=== PATIENT | male | born 1970 | race Caucasian/White ===

== ENCOUNTER → 2017-09-05 | Outpatient (CLI) | payer OTHER, BC, MEDICAID ==
--- NOTE | 2017-09-05 16:02 | Diagnostic Imaging Report ---
PROCEDURE: CT head without contrast. TECHNIQUE: Multiple contiguous axial images were obtained through the brain without the use of intravenous contrast. INDICATION: Head injury with bump in the right posterior region. Patient also complains of severe headache. COMPARISON: No prior studies are available for comparison. FINDINGS: The ventricles and sulci are within normal limits. There is an area of encephalomalacia in the right frontal lobe consistent with prior infarct or trauma. No sulcal effacement is seen. No midline shift is identified. No acute intra-axial or extra-axial hemorrhage is identified. The cisterns are patent. The visualized paranasal sinuses are clear. IMPRESSION: Chronic changes. No acute intracranial process is detected. Dictated by: Dictated on workstation # [id number]
== END ==
LOC: RAD 15:43
PROVIDERS: ATTEND Nurse Practitioner
DX: S09.90XA Unspecified injury of head, initial encounter (principal); G93.89 Other specified disorders of brain
CPT/HCPCS: 70450

== ENCOUNTER 2017-09-06 12:54 | Emergency (ER) | payer OTHER, BC, MEDICAID ==
[~2017-09-06] VITALS: Ht 170.2 cm; Wt 115.7 kg
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
[2017-09-06 13:37] LABS: BASOPHILS % (AUTO) 0 % (0-10); EOSINOPHILS # (AUTO) 0.1 10^3/uL (0.0-0.3); EOSINOPHILS % (AUTO) 1 % (0-10); HEMATOCRIT 43 % (40-54); HEMOGLOBIN 15.3 G/DL (13.3-17.7); LYMPHOCYTES # (AUTO) 3.9 X 10^3 (1.0-4.0); LYMPHOCYTES % (AUTO) 42 % (12-44); MEAN CORPUSCULAR HEMOGLOBIN 32 PG (25-34); MEAN CORPUSCULAR HGB CONC 35 G/DL (32-36); MEAN CORPUSCULAR VOLUME 91 FL (80-99); MEAN PLATELET VOLUME 10.4 FL (7.4-10.4); MONOCYTES % (AUTO) 11 % (0-12); NEUTROPHILS # (AUTO) 4.2 X 10^3 (1.8-7.8); NEUTROPHILS % (AUTO) 45 % (42-75); PLATELET COUNT 188 10^3/uL (130-400); RED BLOOD COUNT 4.79 10^6/uL (4.35-5.85); RED CELL DISTRIBUTION WIDTH 13.4 % (10.0-14.5); WHITE BLOOD COUNT 9.2 10^3/uL (4.3-11.0)
[2017-09-06 13:46] LABS: PROTHROMBIN TIME PATIENT 13.4 SEC (12.2-14.7)
[2017-09-06 13:49] LABS: FIBRIN DEGRADATION PRODUCTS 0.34 UG/ML (0.00-0.49)
--- NOTE | 2017-09-06 13:51 | Diagnostic Imaging Report ---
PROCEDURE: CT maxillofacial without contrast. TECHNIQUE: Multiple contiguous axial images were obtained through the facial bones without the use of intravenous contrast. INDICATION: Head and facial injury. Patient reports nasal blood. FINDINGS: Frontal sinus is clear apart from minimal mucosal thickening in the right aspect of the frontal sinus, which appears chronic and was present on MRI of the brain from 02/17/2008. Ethmoid air cells and sphenoid sinus are clear. Bilateral maxillary sinuses are clear. Mastoids are aerated. Zygomatic arches are intact. Bilateral nasal bones are intact. Maxillary sinus muñiz and orbital muñiz appear to be intact. The nasal septum demonstrates very slight deviation to the right. Ostiomeatal units are patent bilaterally. IMPRESSION: No facial bone fracture is identified. Dictated by: Dictated on workstation # [id number]
[2017-09-06 13:53] LABS: EOSINOPHILS % (MANUAL) 2 %; LYMPHOCYTES % (MANUAL) 28 %; MONOCYTES % (MANUAL) 7 %; NEUTROPHILS % (MANUAL) 48 %; RBC MORPH NORMAL; REACTIVE LYMPHOCYTES 15 %
[2017-09-06 13:56] LABS: ALANINE AMINOTRANSFERASE 31 U/L (0-55); ALBUMIN 4.6 GM/DL (3.2-4.5); ALKALINE PHOSPHATASE 99 U/L (40-136); BILIRUBIN,TOTAL 0.5 MG/DL (0.1-1.0); BUN/CREATININE RATIO 17; CALCIUM 9.4 MG/DL (8.5-10.1); CARBON DIOXIDE 23 MMOL/L (21-32); CHLORIDE 108 MMOL/L (98-107); CREATINE KINASE 126 U/L (30-200); CREATININE SERUM 0.89 MG/DL (0.60-1.30); GFR ESTIMATED > 60; GLUCOSE 104 MG/DL (70-105); POTASSIUM 3.9 MMOL/L (3.6-5.0); SODIUM 138 MMOL/L (135-145); TOTAL PROTEIN 7.8 GM/DL (6.4-8.2)
[2017-09-06 14:02] LABS: MYOGLOBIN SERUM 26.1 NG/ML (10.0-92.0)
[2017-09-06 14:03] VITALS: BP 145/96
[2017-09-06] MEDS ORDERED: LORazepam INJ 2 MG/ML (ATIVAN) VIAL IVP ONE (14:30)
--- NOTE | 2017-09-06 14:58 | Diagnostic Imaging Report ---
PATIENT HISTORY: Fall, left wrist pain. TECHNIQUE: Three views of the left wrist. COMPARISON: None. FINDINGS: No acute fracture or dislocation is seen in the left wrist. Alignment appears normal. The joint spaces are generally preserved. Small lucencies in the ulnar aspect of the lunate may represent degenerative change. IMPRESSION: No acute osseous abnormality is seen in the left wrist. Dictated by: Dictated on workstation # [id number]
--- NOTE | 2017-09-06 15:02 | Diagnostic Imaging Report ---
PROCEDURE: MR imaging of the brain without contrast. TECHNIQUE: Multiplanar, multisequence MR imaging of the brain was performed without contrast. INDICATION: Recent electrocution with tingling throughout the entire body. COMPARISON: Comparison is made with prior MRI of the brain from 02/17/2008. FINDINGS: No diffusion restriction is seen to suggest acute ischemia. The ventricular size and sulcal pattern are stable. Area of encephalomalacia in the right frontal lobe appears stable and is consistent with a prior infarct or trauma. No acute intra-axial or extra-axial hemorrhage is detected. Small periventricular focus in the high right frontal lobe is stable. Corpus callosum is unremarkable. The sella and parasellar structures are unremarkable. IMPRESSION: Stable chronic changes when compared with examination from 02/17/2008. No acute intracranial process is detected. Dictated by: Dictated on workstation # [id number]
[2017-09-06 15:19] LABS: BILIRUBIN,URINE NEGATIVE (NEGATIVE); CLARITY,URINE CLEAR; COLOR,URINE YELLOW; GLUCOSE, URINE (UA) NEGATIVE (NEGATIVE); KETONES,URINE NEGATIVE (NEGATIVE); LEUKOCYTE ESTERASE ,URINE NEGATIVE (NEGATIVE); NITRITE,URINE NEGATIVE (NEGATIVE); PH,URINE 6.5 (5-9); PROTEIN,URINE NEGATIVE (NEGATIVE); UROBILINOGEN,URINE NORMAL (NORMAL)
[2017-09-06 15:36] LABS: RBC,URINE RARE /HPF
[2017-09-06 15:42] LABS: BACTERIA,URINE NEGATIVE /HPF
[2017-09-06 15:46] VITALS: BP 139/93
== END 2017-09-06 15:51 | disposition home or self-care (01) ==
LOC: EDUNIT# 12:54 → ER 12:56
DX: S06.0X0A Concussion without loss of consciousness, initial encounter (principal); M62.81 Muscle weakness (generalized); Z88.0 Allergy status to penicillin; Z88.5 Allergy status to narcotic agent; Z88.8 Allergy status to other drugs, medicaments and biological substances; W85.XXXA Exposure to electric transmission lines, initial encounter; W17.89XA Other fall from one level to another, initial encounter; W22.09XA Striking against other stationary object, initial encounter
CPT/HCPCS: 36415; 70486; 70551; 73110; 80053; 81000; 82550; 83874; 85007; 85027; 85379; 85610; 96374

== ENCOUNTER → 2017-12-24 | Outpatient (CLI) | payer OTHER, MEDICAID | LOC: CARD 09:28 | PROVIDERS: ATTEND Internal Medicine Interventional Cardiology | DX: R06.02 Shortness of breath (principal); I10 Essential (primary) hypertension; I08.1 Rheumatic disorders of both mitral and tricuspid valves; E66.01 Morbid (severe) obesity due to excess calories; T75.4XXA Electrocution, initial encounter ==

== ENCOUNTER → 2017-12-26 | Outpatient (CLI) | payer OTHER, MEDICAID | LOC: CARD 09:31 | PROVIDERS: ATTEND Internal Medicine Interventional Cardiology | DX: R06.02 Shortness of breath (principal); I10 Essential (primary) hypertension; E66.01 Morbid (severe) obesity due to excess calories; T75.4XXA Electrocution, initial encounter | CPT/HCPCS: 93225; 93226 ==

== ENCOUNTER 2018-10-13 11:58 | Day surgery (SDC) | payer BC, MEDICAID, OTHER ==
[2018-10-13] VITALS (9 sets, daily range): BP systolic 121–143; BP diastolic 52–97
[~2018-10-13] VITALS: Ht 170.2 cm; Wt 120.9 kg
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
--- OUTSIDE RECORDS SUMMARY | 2018-10-13 12:03 | XMS REPORT ---
Author Author CT DUBOIS Organization [facility] Address [address] [place] [address] Care Team Providers Care Dentistry Teacher Name Role Phone CT DUBOIS Unavailable PROBLEMS Type Condition ICD9-CM Code SXD68-DT Code Onset Dates Condition Status SNOMED Code Problem Accidental electrocution, subsequent encounter T75.4XXD Active 870952114 Problem Post concussion syndrome F07.81 Active 86266947 Problem Tinnitus of both ears H93.13 Active 5433459523371 Problem Anxiety F41.9 Active 06477768 Problem Tactile hypesthesia R20.1 Active 86544879 Problem Seasonal allergic rhinitis, unspecified trigger J30.2 Active 936648893 Problem Sinusitis chronic, frontal J32.1 Active 57097244 Problem Severe episode of recurrent major depressive disorder, without psychotic features F33.2 Active 66105364 Problem Panic disorder F41.0 Active 786426739 Problem YOJANA (generalized anxiety disorder) F41.1 Active 02808489 Problem Major depressive disorder F32.9 Active 559374264 ALLERGIES Substance Reaction Event Type Date Status Codeine Sulfate shortness of breath Drug Allergy Jul, Active gabapentin 300mg shortness of breath/rash Non Drug Allergy Jul, Active All Antidepressants shortness of breath Non Drug Allergy Jul, Active Contrast Allergy PreMed Pack shortness of breath Drug Allergy Jul, Active Seroquel sob and rash Drug Allergy Jul, Active Penicillin V Potassium shortness of breath Drug Allergy Jul, Active ENCOUNTERS Encounter Location Date Diagnosis [facility] [address] [facility] [id number] [address] Aug, Morbid obesity E66.01 and Seasonal allergic rhinitis, unspecified trigger J30.2 [facility] [address] [id number] [address] Aug, Anxiety F41.9 [facility] [id number] [place] [address] Aug, Major depressive disorder F32.9 and YOJANA (generalized anxiety disorder) F41.1 [place] [address] [id number] [place] [address] Jul, Major depressive disorder F32.9 and YOJANA (generalized anxiety disorder) F41.1 [place] [address] [address] Jul, Anxiety F41.9 [place] [address] [address] Jun, Major depressive disorder F32.9 and YOJANA (generalized anxiety disorder) F41.1 [place] [address] [address] [id number] [place] [address] May, Anxiety F41.9 ; Fever of unknown origin (FUO) R50.9 and BMI 40.0- 44.9, adult Z68.41 [place] [id number] [place] [address] May, Major depressive disorder F32.9 and YOJANA (generalized anxiety disorder) F41.1 [place] [id number] [place] [address] May, Major depressive disorder F32.9 and YOJANA (generalized anxiety disorder) F41.1 [place] [address] [place] [address] [id number] [place] [address] May, Major depressive disorder F32.9 and YOJANA (generalized anxiety disorder) F41.1 [place] [address] [address] [id number] [place] [address] Jan, [place] [address] [address] Oct, Panic disorder F41.0 ; Severe episode of recurrent major depressive disorder, without psychotic features F33.2 and YOJANA (generalized anxiety disorder) F41.1 [place] [address] [address] Oct, [facility] [id number] [place] [address] Oct, [facility] [id number] [place] [address] Oct, Panic disorder F41.0 and Severe episode of recurrent major depressive disorder, without psychotic features F33.2 [facility] [id number] [place] [address] Oct, Post concussion syndrome F07.81 ; Post-concussion headache G44.309 ; Weakness R53.1 ; Vision abnormalities H53.9 ; Tinnitus of both ears H93.13 ; Cervicalgia M54.2 ; Tactile hypesthesia R20.1 and Accidental electrocution, subsequent encounter T75.4XXD [place] [address] [place] [id number] [place] [address] Oct, Concussion with loss of consciousness, initial encounter S06.0X9A and Concussion with loss of consciousness, subsequent encounter S06.0X9D [facility] [id number] [place] [address] Oct, Concussion with loss of consciousness, subsequent encounter S06.0X9D [facility] [id number] [place] [address] Oct, Concussion with loss of consciousness, subsequent encounter S06.0X9D [facility] [id number] [place] [address] September, [facility] [id number] [place] [address] September, [facility] [id number] [place] [address] September, Concussion with loss of consciousness, initial encounter S06.0X9A [facility] [id number] [place] [address] September, [facility] [id number] [place] [address] September, Concussion with loss of consciousness, initial encounter S06.0X9A [place] [address] [address] September, Concussion with loss of consciousness, initial encounter S06.0X9A [place] [address] [address] September, [place] [address] [address] September, [place] [address] [address] September, Concussion with loss of consciousness, initial encounter S06.0X9A [place] [address] [address] Aug, Concussion with loss of consciousness, initial encounter S06.0X9A [place] [address] [id number] [place] [address] Aug, [place] [address] [address] Aug, [place] [address] [place] [address] [id number] [place] [address] Aug, Injury of head, initial encounter S09.90XA [place] [address] [address] [id number] [place] [address] Aug, Foot pain, left M79.672 and BMI 40.0-44.9, adult Z68.41 [facility] [address] [address] Aug, BMI 40.0-44.9, adult Z68.41 ; Foot pain, left M79.672 and Scratches T14.8XXA [facility] [address] [address] May, Fever R50.9 ; SOB (shortness of breath) R06.02 ; Influenza A J10.1 and BMI 40.0-44.9, adult Z68.41 [place] [id number] [place] [address] 04 Apr, 2017 Other viral agents as the cause of diseases classified elsewhere B97.89 and Acute upper respiratory infection, unspecified J06.9 [place] [address] [place] [address] [id number] [place] [address] 16 Dec, 2016 Grade I hemorrhoids K64.0 ; Umbilical hernia without obstruction and without gangrene K42.9 and 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 [place] [address] [address] Nov, [place] [address] [address] Nov, [place] [address] [address] Nov, Right upper quadrant abdominal pain R10.11 [place] [address] [address] September, Screening for diabetes mellitus Z13.1 and Acute non-recurrent frontal sinusitis J01.10 [place] [address] [id number] [place] [address] September, Sore throat J02.9 ; Body aches R52 and Strep throat J02.0 IMMUNIZATIONS No Known Immunizations SOCIAL HISTORY Never Assessed REASON FOR VISIT f/u on medications -[facility] PLAN OF CARE VITAL SIGNS Height 67 in 2018-07-24 Weight 266 lbs 2018-07-24 Temperature 98.1 degrees Fahrenheit 2018-07-24 Heart Rate 86 bpm 2018-07-24 Respiratory Rate 20 2018-07-24 BMI 41.66 kg/m2 2018-07-24 Blood pressure systolic 140 mmHg 2018-07-24 Blood pressure diastolic 78 mmHg 2018-07-24 MEDICATIONS Medication Instructions Dosage Frequency Start Date End Date Duration Status Xanax 0.25 MG Orally Twice a day 1 tablet 12h May, 28 days Active RESULTS No Results PROCEDURES No Known procedures INSTRUCTIONS MEDICATIONS ADMINISTERED No Known Medications MEDICAL (GENERAL) HISTORY Type Description Date Medical History 110-V electrocution August 2017 Medical History seizure when child and when working for [employer] in 20s after exposure to chemicals Medical History Anxiety disorder Medical History panic disorder Surgical History tubes in ears as a child Hospitalization History [facility] intptient 20s
--- OUTSIDE RECORDS SUMMARY | 2018-10-13 12:03 | XMS REPORT ---
Author Author LETA BENITEZ Organization [facility] Address [address] [place] [address] Phone Unavailable Care Team Providers Care Make Up Man Name Role Phone LETA BENITEZ Unavailable Unavailable PROBLEMS Type Condition ICD9-CM Code JOI03-GR Code Onset Dates Condition Status SNOMED Code Problem Post concussion syndrome F07.81 Active 85867503 Problem Sinusitis chronic, frontal J32.1 Active 90583035 Problem YOJANA (generalized anxiety disorder) F41.1 Active 54620144 Problem Panic disorder F41.0 Active 882391248 Problem Tactile hypesthesia R20.1 Active 81663439 Problem Tinnitus of both ears H93.13 Active 0331770331382 Problem Severe episode of recurrent major depressive disorder, without psychotic features F33.2 Active 18746655 Problem Accidental electrocution, subsequent encounter T75.4XXD Active 132735453 ALLERGIES No Information ENCOUNTERS Encounter Location Date Diagnosis [facility] [id number] [place] [address] Jan, [place] [id number] [place] [address] Oct, Panic disorder F41.0 ; Severe episode of recurrent major depressive disorder, without psychotic features F33.2 and YOJANA (generalized anxiety disorder) F41.1 [facility] [address] [place] [address] Oct, [facility] [address] [place] [address] Oct, [facility] [id number] [place] [address] Oct, Panic disorder F41.0 and Severe episode of recurrent major depressive disorder, without psychotic features F33.2 [place] [id number] [place] [address] Oct, Post concussion syndrome F07.81 ; Post-concussion headache G44.309 ; Weakness R53.1 ; Vision abnormalities H53.9 ; Tinnitus of both ears H93.13 ; Cervicalgia M54.2 ; Tactile hypesthesia R20.1 and Accidental electrocution, subsequent encounter T75.4XXD [facility] [id number] [place] [address] Oct, Concussion with loss of consciousness, initial encounter S06.0X9A and Concussion with loss of consciousness, subsequent encounter S06.0X9D [facility] [address] [address] Oct, Concussion with loss of consciousness, subsequent encounter S06.0X9D [facility] [address] [address] Oct, Concussion with loss of consciousness, subsequent encounter S06.0X9D [facility] [address] [address] September, [facility] [address] [address] September, [facility] [address] [address] September, Concussion with loss of consciousness, initial encounter S06.0X9A [facility] [id number] [place] [address] September, [facility] [id number] [place] [address] September, Concussion with loss of consciousness, initial encounter S06.0X9A [facility] [address] [address] September, Concussion with loss of consciousness, initial encounter S06.0X9A [facility] [id number] [place] [address] September, [place] [id number] [place] [address] September, [place] [address] [address] September, Concussion with loss of consciousness, initial encounter S06.0X9A [place] [address] [address] Aug, Concussion with loss of consciousness, initial encounter S06.0X9A [place] [address] [address] Aug, [place] [address] [address] Aug, [place] [address] [address] Aug, Injury of head, initial encounter S09.90XA [place] [address] [address] Aug, Foot pain, left M79.672 and BMI 40.0-44.9, adult Z68.41 [facility] [address] [address] Aug, BMI 40.0-44.9, adult Z68.41 ; Foot pain, left M79.672 and Scratches T14.8XXA [facility] [place] [id number] [place] [address] May, Fever R50.9 ; SOB (shortness of breath) R06.02 ; Influenza A J10.1 and BMI 40.0-44.9, adult Z68.41 [facility] [address] [address] Apr, Other viral agents as the cause of diseases classified elsewhere B97.89 and Acute upper respiratory infection, unspecified J06.9 [facility] [address] [address] Dec, Grade I hemorrhoids K64.0 ; Umbilical hernia without obstruction and without gangrene K42.9 and 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 [facility] [address] [address] 13 Nov, 2016 [facility] [address] [address] Nov, [facility] [id number] [place] [address] Nov, Right upper quadrant abdominal pain R10.11 [facility] [address] [place] [address] September, Screening for diabetes mellitus Z13.1 and Acute non-recurrent frontal sinusitis J01.10 [facility] [address] [address] September, Sore throat J02.9 ; Body aches [...] in ears as a child Hospitalization History [place] intptient 20s
--- OUTSIDE RECORDS SUMMARY | 2018-10-13 12:04 | XMS REPORT ---
Author Author LETA BENITEZ Organization [facility] Address [address] [place] [address] Phone Unavailable Care Team Providers Care Head Rose Grower Name Role Phone LETA BENITEZ Unavailable Unavailable PROBLEMS Type Condition ICD9-CM Code COF31-HP Code Onset Dates Condition Status SNOMED Code Problem Post concussion syndrome F07.81 Active 99193439 Problem Sinusitis chronic, frontal J32.1 Active 10884260 Problem YOJANA (generalized anxiety disorder) F41.1 Active 79557778 Problem Panic disorder F41.0 Active 327405937 Problem Tactile hypesthesia R20.1 Active 31386034 Problem Tinnitus of both ears H93.13 Active 0613363812910 Problem Severe episode of recurrent major depressive disorder, without psychotic features F33.2 Active 81475015 Problem Accidental electrocution, subsequent encounter T75.4XXD Active 629685169 ALLERGIES No Information ENCOUNTERS Encounter Location Date Diagnosis [facility] [address] [place] [address] Jan, [place] [address] [place] [id number] [place] [address] Oct, Panic disorder F41.0 ; Severe episode of recurrent major depressive disorder, without psychotic features F33.2 and YOJANA (generalized anxiety disorder) F41.1 [facility] [address] [place] [address] Oct, [facility] [address] [place] [address] Oct, [facility] [address] [place] [id number] [place] [address] Oct, Panic disorder F41.0 and Severe episode of recurrent major depressive disorder, without psychotic features F33.2 [place] [address] [place] [id number] [place] [address] Oct, Post concussion syndrome F07.81 ; Post-concussion headache G44.309 ; Weakness R53.1 ; Vision abnormalities H53.9 ; Tinnitus of both ears H93.13 ; Cervicalgia M54.2 ; Tactile hypesthesia R20.1 and Accidental electrocution, subsequent encounter T75.4XXD [facility] [id number] [place] [address] Oct, Concussion with loss of consciousness, initial encounter S06.0X9A and Concussion with loss of consciousness, subsequent encounter S06.0X9D [facility] [address] [address] Oct, Concussion with loss of consciousness, subsequent encounter S06.0X9D [facility] [address] [address] Oct, Concussion with loss of consciousness, subsequent encounter S06.0X9D [facility] [address] [address] September, [facility] [address] [address] September, [facility] [address] [address] September, Concussion with loss of consciousness, initial encounter S06.0X9A [facility] [id number] [place] [address] September, [facility] [id number] [place] [address] September, Concussion with loss of consciousness, initial encounter S06.0X9A [facility] [address] [address] September, Concussion with loss of consciousness, initial encounter S06.0X9A [facility] [id number] [place] [address] September, [place] [id number] [place] [address] September, [place] [address] [address] September, Concussion with loss of consciousness, initial encounter S06.0X9A [place] [address] [address] Aug, Concussion with loss of consciousness, initial encounter S06.0X9A [place] [address] [address] Aug, [place] [address] [address] Aug, [place] [address] [address] Aug, Injury of head, initial encounter S09.90XA [place] [address] [address] Aug, Foot pain, left M79.672 and BMI 40.0-44.9, adult Z68.41 [facility] [address] [address] Aug, BMI 40.0-44.9, adult Z68.41 ; Foot pain, left M79.672 and Scratches T14.8XXA [facility] [place] [id number] [place] [address] May, Fever R50.9 ; SOB (shortness of breath) R06.02 ; Influenza A J10.1 and BMI 40.0-44.9, adult Z68.41 [facility] [address] [address] Apr, Other viral agents as the cause of diseases classified elsewhere B97.89 and Acute upper respiratory infection, unspecified J06.9 [facility] [address] [address] 16 Dec, 2016 Grade I hemorrhoids K64.0 ; Umbilical hernia without obstruction and without gangrene K42.9 and 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 [facility] [address] [address] 13 Nov, 2016 [facility] [address] [address] 13 Nov, 2016 [facility] [id number] [place] [address] 11 Nov, 2016 Right upper quadrant abdominal pain R10.11 [facility] [address] [place] [address] September, Screening for diabetes mellitus Z13.1 and Acute non-recurrent frontal sinusitis J01.10 [facility] [address] [place] [id number] [address] September, Sore throat J02.9 ; Body aches R52 and Strep throat J02.0 IMMUNIZATIONS No Known Immunizations SOCIAL HISTORY Never Assessed REASON FOR VISIT Xray (walk-in) [facility] RT(R) PLAN OF CARE VITAL SIGNS MEDICATIONS Unknown Medications RESULTS Name Result Date Reference Range Xray : Spine, Thoracic 2 views (IN HOUSE) 2017-10-18 Xray : Spine, Lumbar 2-3 views (IN HOUSE) 2017-10-18 PROCEDURES Procedure Date Ordered Result Body Site X-RAY EXAM OF LOWER SPINE October 18, 2017 X-RAY EXAM OF THORACIC SPINE October 18, 2017 INSTRUCTIONS MEDICATIONS ADMINISTERED No Known Medications MEDICAL (GENERAL) HISTORY Type Description Date Medical History 110-V electrocution August 2017 Medical History seizure when child and when working for [employer] in 20s after exposure to chemicals Surgical History tubes in ears as a child Hospitalization History [facility] intptient 20s
--- OUTSIDE RECORDS SUMMARY | 2018-10-13 12:04 | XMS REPORT ---
Author Author CHRISTIAN CRAIG Organization [facility] Address [address] [place] [address] Care Team Providers Care Manufacturer'S Service Representative Name Role Phone CHRISTIAN CRAIG Unavailable PROBLEMS Type Condition ICD9-CM Code VET20-CZ Code Onset Dates Condition Status SNOMED Code Problem Post concussion syndrome F07.81 Active 07232263 Problem Sinusitis chronic, frontal J32.1 Active 89542435 Problem YOJANA (generalized anxiety disorder) F41.1 Active 45618523 Problem Panic disorder F41.0 Active 431489825 Problem Tactile hypesthesia R20.1 Active 17785062 Problem Tinnitus of both ears H93.13 Active 2868895523260 Problem Severe episode of recurrent major depressive disorder, without psychotic features F33.2 Active 96651169 Problem Accidental electrocution, subsequent encounter T75.4XXD Active 051001528 ALLERGIES No Information ENCOUNTERS Encounter Location Date Diagnosis [place] [id number] [place] [id number] [place] [address] Jan, [place] [address] [address] Oct, Panic disorder F41.0 ; Severe episode of recurrent major depressive disorder, without psychotic features F33.2 and YOJANA (generalized anxiety disorder) F41.1 [facility] [id number] [place] [address] Oct, [place] [address] [place] [id number] [place] [address] Oct, [place] [address] [address] Oct, Panic disorder F41.0 and Severe episode of recurrent major depressive disorder, without psychotic features F33.2 [place] [address] [address] Oct, Post concussion syndrome F07.81 ; Post-concussion headache G44.309 ; Weakness R53.1 ; Vision abnormalities H53.9 ; Tinnitus of both ears H93.13 ; Cervicalgia M54.2 ; Tactile hypesthesia R20.1 and Accidental electrocution, subsequent encounter T75.4XXD [facility] [id number] [place] [address] Oct, Concussion with loss of consciousness, initial encounter S06.0X9A and Concussion with loss of consciousness, subsequent encounter S06.0X9D [facility] [id number] [place] [address] Oct, Concussion with loss of consciousness, subsequent encounter S06.0X9D [facility] [id number] [place] [address] Oct, Concussion with loss of consciousness, subsequent encounter S06.0X9D [facility] [id number] [place] [address] September, [facility] [id number] [place] [address] September, [facility] [id number] [place] [address] September, Concussion with loss of consciousness, initial encounter S06.0X9A [facility] [id number] [place] [address] September, [facility] [address] [id number] [place] [address] September, Concussion with loss of consciousness, initial encounter S06.0X9A [facility] [id number] [place] [address] September, Concussion with loss of consciousness, initial encounter S06.0X9A [facility] [id number] [place] [address] September, [place] [address] [id number] [place] [address] September, [place] [address] [address] September, Concussion with loss of consciousness, initial encounter S06.0X9A [place] [address] [address] Aug, Concussion with loss of consciousness, initial encounter S06.0X9A [place] [id number] [place] [address] Aug, [place] [address] [address] Aug, [place] [address] [address] Aug, Injury of head, initial encounter S09.90XA [place] [address] [address] Aug, Foot pain, left M79.672 and BMI 40.0-44.9, adult Z68.[address] [facility] [address] [address] Aug, BMI 40.0-44.9, adult Z68.41 ; Foot pain, left M79.672 and Scratches T14.8XXA [facility] [place] [id number] [place] [address] May, Fever R50.9 ; SOB (shortness of breath) R06.02 ; Influenza A J10.1 and BMI 40.0-44.9, adult Z68.[address] [facility] [place] [id number] [place] [address] Apr, Other viral agents as the cause of diseases classified elsewhere B97.89 and Acute upper respiratory infection, unspecified J06.[address] 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 [facility] [address] [address] 13 Nov, 2016 [facility] [address] [place] [address] Nov, [facility] [address] [place] [id number] [place] [address] Nov, Right upper quadrant abdominal pain R10.11 [place] [address] [id number] [place] [address] September, Screening for diabetes mellitus Z13.1 and Acute non-recurrent frontal sinusitis J01.10 [facility] [address] [address] September, Sore throat J02.9 ; Body aches [...] seizure when child and when working for [employer] in 20s after exposure to chemicals Surgical History tubes in ears as a child Hospitalization History [place] intptient 20s
--- OUTSIDE RECORDS SUMMARY | 2018-10-13 12:04 | XMS REPORT ---
Author Author LETA BENITEZ Organization [facility] Address [address] [place] [address] Phone Unavailable Care Team Providers Care Community Support Associate Name Role Phone LETA BENITEZ Unavailable Unavailable PROBLEMS Type Condition ICD9-CM Code QXS79-BM Code Onset Dates Condition Status SNOMED Code Problem Post concussion syndrome F07.81 Active 89993613 Problem Sinusitis chronic, frontal J32.1 Active 94512856 Problem YOJANA (generalized anxiety disorder) F41.1 Active 72134604 Problem Panic disorder F41.0 Active 182917163 Problem Tactile hypesthesia R20.1 Active 02616696 Problem Tinnitus of both ears H93.13 Active 0380357131784 Problem Severe episode of recurrent major depressive disorder, without psychotic features F33.2 Active 96033294 Problem Accidental electrocution, subsequent encounter T75.4XXD Active 286925688 ALLERGIES No Information ENCOUNTERS Encounter Location Date Diagnosis [facility] [address] [place] [address] Jan, [place] [address] [place] [id number] [place] [address] Oct, Panic disorder F41.0 ; Severe episode of recurrent major depressive disorder, without psychotic features F33.2 and YOJANA (generalized anxiety disorder) F41.1 [facility] [address] [place] [address] Oct, [facility] [address] [place] [address] Oct, [facility] [address] [place] [id number] [place] [address] Oct, Panic disorder F41.0 and Severe episode of recurrent major depressive disorder, without psychotic features F33.2 [place] [address] [place] [id number] [place] [address] Oct, Post concussion syndrome F07.81 ; Post-concussion headache G44.309 ; Weakness R53.1 ; Vision abnormalities H53.9 ; Tinnitus of both ears H93.13 ; Cervicalgia M54.2 ; Tactile hypesthesia R20.1 and Accidental electrocution, subsequent encounter T75.4XXD [facility] [address] [place] [id number] [place] [address] Oct, Concussion with loss of consciousness, initial encounter S06.0X9A and Concussion with loss of consciousness, subsequent encounter S06.0X9D [facility] [address] [address] Oct, Concussion with loss of consciousness, subsequent encounter S06.0X9D [facility] [address] [address] Oct, Concussion with loss of consciousness, subsequent encounter S06.0X9D [facility] [address] [address] September, [facility] [address] [address] September, [facility] [address] [address] September, Concussion with loss of consciousness, initial encounter S06.0X9A [facility] [address] [place] [id number] [place] [address] September, [facility] [address] [place] [id number] [place] [address] September, Concussion with loss of consciousness, initial encounter S06.0X9A [facility] [address] [address] September, Concussion with loss of consciousness, initial encounter S06.0X9A [facility] [address] [place] [id number] [place] [address] September, [place] [address] [place] [address] [id number] [place] [address] September, [place] [address] [address] September, Concussion with loss of consciousness, initial encounter S06.0X9A [place] [address] [address] Aug, Concussion with loss of consciousness, initial encounter S06.0X9A [place] [address] [address] Aug, [place] [address] [address] Aug, [place] [address] [address] Aug, Injury of head, initial encounter S09.90XA [place] [address] [address] Aug, Foot pain, left M79.672 and BMI 40.0-44.9, adult Z68.41 [facility] [address] [address] Aug, BMI 40.0-44.9, adult Z68.41 ; Foot pain, left M79.672 and Scratches T14.8XXA [facility] [place] [id number] [place] [address] May, Fever R50.9 ; SOB (shortness of breath) R06.02 ; Influenza A J10.1 and BMI 40.0-44.9, adult Z68.41 [facility] [address] [address] Apr, Other viral agents as the cause of diseases classified elsewhere B97.89 and Acute upper respiratory infection, unspecified J06.9 [facility] [address] [address] Dec, Grade I hemorrhoids K64.0 ; Umbilical hernia without obstruction and without gangrene K42.9 and 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 [facility] [address] [address] 13 Nov, 2016 [facility] [address] [address] Nov, [facility] [address] [place] [id number] [place] [address] Nov, Right upper quadrant abdominal pain R10.11 [facility] [address] [place] [address] September, Screening for diabetes mellitus Z13.1 and Acute non-recurrent frontal sinusitis J01.10 [facility] [address] [address] September, Sore throat J02.9 ; Body aches R52 and Strep throat J02.0 IMMUNIZATIONS No Known Immunizations SOCIAL HISTORY Never Assessed REASON FOR VISIT PLAN OF CARE VITAL SIGNS MEDICATIONS Unknown Medications RESULTS No Results PROCEDURES No Known procedures INSTRUCTIONS MEDICATIONS ADMINISTERED No Known Medications MEDICAL (GENERAL) HISTORY Type Description Date Medical History 110-V electrocution August 2017 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
--- OUTSIDE RECORDS SUMMARY | 2018-10-13 12:04 | XMS REPORT ---
Author Author CHRISTIAN CRAIG Organization [facility] Address [address] [place] [address] Care Team Providers Care Patent Examiner Name Role Phone CHRISTIAN CRAIG Unavailable PROBLEMS Type Condition ICD9-CM Code SLN24-RG Code Onset Dates Condition Status SNOMED Code Problem Post concussion syndrome F07.81 Active 23763696 Problem Sinusitis chronic, frontal J32.1 Active 01739783 Problem YOJANA (generalized anxiety disorder) F41.1 Active 92534652 Problem Panic disorder F41.0 Active 918875142 Problem Tactile hypesthesia R20.1 Active 09654537 Problem Tinnitus of both ears H93.13 Active 5299751715273 Problem Severe episode of recurrent major depressive disorder, without psychotic features F33.2 Active 51458125 Problem Accidental electrocution, subsequent encounter T75.4XXD Active 952760184 ALLERGIES Substance Reaction Event Type Date Status Contrast Allergy PreMed Pack shortness of breath Drug Allergy Oct, Active Penicillin V Potassium shortness of breath Drug Allergy Oct, Active Codeine Sulfate shortness of breath Drug Allergy Oct, Active gabapentin 300mg shortness of breath/rash Non Drug Allergy Oct, Active All Antidepressants shortness of breath Non Drug Allergy Oct, Active ENCOUNTERS Encounter Location Date Diagnosis [facility] [address] [place] [address] [id number] [place] [address] Jan, [facility] [address] [place] [id number] [place] [address] Oct, Panic disorder F41.0 ; Severe episode of recurrent major depressive disorder, without psychotic features F33.2 and YOJANA (generalized anxiety disorder) F41.1 [facility] [address] [place] [address] [id number] [address] Oct, [facility] [address] [place] [id number] [place] [address] Oct, [facility] [address] [place] [id number] [place] [address] Oct, Panic disorder F41.0 and Severe episode of recurrent major depressive disorder, without psychotic features F33.2 [facility] [address] [place] [id number] [place] [address] Oct, Post concussion syndrome F07.81 ; Post-concussion headache G44.309 ; Weakness R53.1 ; Vision abnormalities H53.9 ; Tinnitus of both ears H93.13 ; Cervicalgia M54.2 ; Tactile hypesthesia R20.1 and Accidental electrocution, subsequent encounter T75.4XXD [facility] [address] [place] [address] [id number] [place] [address] Oct, Concussion with loss of consciousness, initial encounter S06.0X9A and Concussion with loss of consciousness, subsequent encounter S06.0X9D [facility] [address] [place] [id number] [place] [address] Oct, Concussion with loss of consciousness, subsequent encounter S06.0X9D [facility] [address] [place] [address] [id number] [place] [address] Oct, Concussion with loss of consciousness, subsequent encounter S06.0X9D [facility] [address] [place] [id number] [place] [address] September, [facility] [address] [place] [id number] [place] [address] September, [facility] [address] [place] [id number] [place] [address] September, Concussion with loss of consciousness, initial encounter S06.0X9A [facility] [address] [place] [id number] [place] [address] September, [facility] [address] [place] [address] [id number] [place] [address] September, Concussion with loss of consciousness, initial encounter S06.0X9A [place] [address] [place] [address] [id number] [place] [address] September, Concussion with loss of consciousness, initial encounter S06.0X9A [place] [address] [address] September, [place] [address] [address] September, [place] [address] [address] September, Concussion with loss of consciousness, initial encounter S06.0X9A [place] [address] [address] Aug, Concussion with loss of consciousness, initial encounter S06.0X9A [place] [address] [address] Aug, [place] [address] [address] Aug, [place] [address] [address] Aug, Injury of head, initial encounter S09.90XA [place] [address] [id number] [place] [address] Aug, Foot pain, left M79.672 and BMI 40.0-44.9, adult Z68.41 [facility] [address] [place] [address] [id number] [place] [address] Aug, BMI 40.0-44.9, adult Z68.41 ; Foot pain, left M79.672 and Scratches T14.8XXA [facility] [address] [address] May, Fever R50.9 ; SOB (shortness of breath) R06.02 ; Influenza A J10.1 and BMI 40.0-44.9, adult Z68.41 [facility] [address], [place] [address] 04 Apr, 2017 Other viral agents as the cause of diseases classified elsewhere B97.89 and Acute upper respiratory infection, unspecified J06.9 [facility] [address] [place] [address] 16 Dec, 2016 Grade I hemorrhoids K64.0 ; Umbilical hernia without obstruction and without gangrene K42.9 and 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 [place] [address] [place] [id number] [place] [address] 13 Nov, 2016 [place] [address] [address] 13 Nov, 2016 [place] [address] [address] 11 Nov, 2016 Right upper quadrant abdominal pain R10.11 [place] [address] [place] [id number] [place] [address] 19 Sep, 2016 Screening for diabetes mellitus Z13.1 and Acute non-recurrent frontal sinusitis J01.10 [place] [address] [place] [id number] [place] [address] 14 Sep, 2016 Sore throat J02.9 ; Body aches R52 and Strep throat J02.0 IMMUNIZATIONS No Known Immunizations SOCIAL HISTORY Never Assessed REASON FOR VISIT Establish [facility], states he got electrocuted in August and is having headach es and pain and tingling with his left limb, neck, shoulder, and back, states he is having panic attacks PLAN OF CARE Activity Details Follow Up 3 Months, prn Reason:CHM/ VITAL SIGNS Height 67 in 2017-11-05 Weight 249 lbs 2017-11-05 Temperature 98.2 degrees Fahrenheit 2017-11-05 Heart Rate 80 bpm 2017-11-05 Respiratory Rate 20 2017-11-05 BMI 38.99 kg/m2 2017-11-05 Blood pressure systolic 140 mmHg 2017-11-05 Blood pressure diastolic 88 mmHg 2017-11-05 MEDICATIONS Medication Instructions Dosage Frequency Start Date End Date Duration Status Meclizine HCl Active RESULTS No Results PROCEDURES No Known procedures INSTRUCTIONS MEDICATIONS ADMINISTERED No Known Medications MEDICAL (GENERAL) HISTORY Type Description Date Medical History 110-V electrocution August 2017 Medical History seizure when child and when working for [employer] in 20s after exposure to chemicals Surgical History tubes in ears as a child Hospitalization History [place] intptient 20s
--- OUTSIDE RECORDS SUMMARY | 2018-10-13 12:04 | XMS REPORT ---
Author Author LETA BENITEZ Organization [facility] Address [address] [place] [address] Phone Unavailable Care Team Providers Care Thermoplastic Technician Name Role Phone LETA BENITEZ Unavailable Unavailable PROBLEMS Type Condition ICD9-CM Code QXH13-PX Code Onset Dates Condition Status SNOMED Code Problem Post concussion syndrome F07.81 Active 70451372 Problem Sinusitis chronic, frontal J32.1 Active 45800832 Problem YOJANA (generalized anxiety disorder) F41.1 Active 00408001 Problem Panic disorder F41.0 Active 738294679 Problem Tactile hypesthesia R20.1 Active 27565754 Problem Tinnitus of both ears H93.13 Active 4707707151464 Problem Severe episode of recurrent major depressive disorder, without psychotic features F33.2 Active 47137354 Problem Accidental electrocution, subsequent encounter T75.4XXD Active 856933335 ALLERGIES No Information ENCOUNTERS Encounter Location Date Diagnosis [facility] [address] [place] [address] Jan, [place] [address] [place] [id number] [place] [address] Oct, Panic disorder F41.0 ; Severe episode of recurrent major depressive disorder, without psychotic features F33.2 and YOJANA (generalized anxiety disorder) F41.1 [facility] [address] [place] [address] Oct, [facility] [address] [place] [address] Oct, [facility] [address] [place] [id number] [place] [address] Oct, Panic disorder F41.0 and Severe episode of recurrent major depressive disorder, without psychotic features F33.2 [place] [address] [place] [id number] [place] [address] Oct, Post concussion syndrome F07.81 ; Post-concussion headache G44.309 ; Weakness R53.1 ; Vision abnormalities H53.9 ; Tinnitus of both ears H93.13 ; Cervicalgia M54.2 ; Tactile hypesthesia R20.1 and Accidental electrocution, subsequent encounter T75.4XXD [facility] [address] [place] [id number] [place] [address] Oct, Concussion with loss of consciousness, initial encounter S06.0X9A and Concussion with loss of consciousness, subsequent encounter S06.0X9D [facility] [address] [address] Oct, Concussion with loss of consciousness, subsequent encounter S06.0X9D [facility] [address] [address] Oct, Concussion with loss of consciousness, subsequent encounter S06.0X9D [facility] [address] [address] September, [facility] [address] [address] September, [facility] [address] [address] September, Concussion with loss of consciousness, initial encounter S06.0X9A [facility] [address] [id number] [place] [address] September, [facility] [id number] [place] [address] September, Concussion with loss of consciousness, initial encounter S06.0X9A [facility] [address] [address] September, Concussion with loss of consciousness, initial encounter S06.0X9A [facility] [address] [place] [id number] [place] [address] September, [place] [address] [place] [address] [id number] [place] [address] September, [place] [address] [address] September, Concussion with loss of consciousness, initial encounter S06.0X9A [place] [address] [address] Aug, Concussion with loss of consciousness, initial encounter S06.0X9A [place] [address] [address] Aug, [place] [address] [address] Aug, [place] [address] [address] Aug, Injury of head, initial encounter S09.90XA [place] [address] [address] Aug, Foot pain, left M79.672 and BMI 40.0-44.9, adult Z68.41 [facility] [address] [address] Aug, BMI 40.0-44.9, adult Z68.41 ; Foot pain, left M79.672 and Scratches T14.8XXA [facility] [place] [id number] [place] [address] May, Fever R50.9 ; SOB (shortness of breath) R06.02 ; Influenza A J10.1 and BMI 40.0-44.9, adult Z68.41 [facility] [address] [address] Apr, Other viral agents as the cause of diseases classified elsewhere B97.89 and Acute upper respiratory infection, unspecified J06.9 [facility] [address] [address] Dec, Grade I hemorrhoids K64.0 ; Umbilical hernia without obstruction and without gangrene K42.9 and 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 [address] [address] September, Sore throat J02.9 ; Body aches R52 and Strep throat J02.0 IMMUNIZATIONS No Known Immunizations SOCIAL HISTORY Never Assessed REASON FOR VISIT Lab order PLAN OF CARE VITAL SIGNS MEDICATIONS Unknown Medications RESULTS No Results PROCEDURES No Known procedures INSTRUCTIONS MEDICATIONS ADMINISTERED No Known Medications MEDICAL (GENERAL) HISTORY Type Description Date Medical History 110-V electrocution August 2017 Medical History seizure when child and when working for [employer] in 20s after exposure to chemicals Surgical History tubes in ears as a child Hospitalization History [place] intptient 20s
--- OUTSIDE RECORDS SUMMARY | 2018-10-13 12:04 | XMS REPORT ---
Author Author MEGHAN GOMEZ [facility] Address [address] [place] [address] Care Team Providers Care Back Strip Machine Operator Name Role Phone MEGHAN GOMEZ Unavailable PROBLEMS Type Condition ICD9-CM Code OWF37-FF Code Onset Dates Condition Status SNOMED Code Problem Post concussion syndrome F07.81 Active 67713007 Problem Sinusitis chronic, frontal J32.1 Active 74366984 Problem YOJANA (generalized anxiety disorder) F41.1 Active 40380508 Problem Panic disorder F41.0 Active 888330243 Problem Tactile hypesthesia R20.1 Active 50578264 Problem Tinnitus of both ears H93.13 Active 2176500289305 Problem Severe episode of recurrent major depressive disorder, without psychotic features F33.2 Active 18122505 Problem Accidental electrocution, subsequent encounter T75.4XXD Active 336180827 ALLERGIES No Information ENCOUNTERS Encounter Location Date Diagnosis [place] [address] [place] [address] Jan, [place] [address] [place] [id number] [place] [address] Oct, Panic disorder F41.0 ; Severe episode of recurrent major depressive disorder, without psychotic features F33.2 and YOJANA (generalized anxiety disorder) F41.1 [facility] [address] [place] [address] Oct, [place] [address] [place] [address] Oct, [place] [address] [place] [address] [id number] [place] [address] Oct, Panic disorder F41.0 and Severe episode of recurrent major depressive disorder, without psychotic features F33.2 [place] [address] [place] [address] [id number] [place] [address] Oct, Post concussion syndrome F07.81 ; Post-concussion headache G44.309 ; Weakness R53.1 ; Vision abnormalities H53.9 ; Tinnitus of both ears H93.13 ; Cervicalgia M54.2 ; Tactile hypesthesia R20.1 and Accidental electrocution, subsequent encounter T75.4XXD [facility] [address] [place] [address] [id number] [place] [address] Oct, Concussion with loss of consciousness, initial encounter S06.0X9A and Concussion with loss of consciousness, subsequent encounter S06.0X9D [facility] [address] [place] [address] [id number] [place] [address] Oct, Concussion with loss of consciousness, subsequent encounter S06.0X9D [facility] [address] [place] [address] [id number] [place] [address] Oct, Concussion with loss of consciousness, subsequent encounter S06.0X9D [facility] [address] [place] [address] [id number] [place] [address] September, [facility] [address] [place] [id number] [place] [address] September, [facility] [address] [place] [id number] [place] [address] September, Concussion with loss of consciousness, initial encounter S06.0X9A [facility] [address] [place] [id number] [place] [address] September, [facility] [address] [place] [address] [id number] [place] [address] September, Concussion with loss of consciousness, initial encounter S06.0X9A [facility] [address] [place] [address] [id number] [place] [address] September, Concussion with loss of consciousness, initial encounter S06.0X9A [facility] [address] [place] [address] [id number] [place] [address] September, [place] [address] [place] [address] [id number] [place] [address] September, [place] [address] [address] September, Concussion with loss of consciousness, initial encounter S06.0X9A [place] [address] [address] Aug, Concussion with loss of consciousness, initial encounter S06.0X9A [place] [address] [address] Aug, [place] [address] [address] Aug, [place] [address] [address] Aug, Injury of head, initial encounter S09.90XA [place] [address] [address] Aug, Foot pain, left M79.672 and BMI 40.0-44.9, adult Z68.41 [facility] [address] [address] Aug, BMI 40.0-44.9, adult Z68.41 ; Foot pain, left M79.672 and Scratches T14.8XXA [facility] [address] [address] May, Fever R50.9 ; SOB (shortness of breath) R06.02 ; Influenza A J10.1 and BMI 40.0-44.9, adult Z68.41 [facility] [place] [id number] [place] [address] Apr, Other viral agents as the cause of diseases classified elsewhere B97.89 and Acute upper respiratory infection, unspecified J06.9 [facility] [address] [place] [address] 16 Dec, 2016 Grade I hemorrhoids K64.0 ; Umbilical hernia without obstruction and without gangrene K42.9 and 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 [facility] [address] [address] 13 Nov, 2016 [facility] [address] [place] [id number] [place] [address] 13 Nov, 2016 [facility] [address] [place] [id number] [place] [address] 11 Nov, 2016 Right upper quadrant abdominal pain R10.11 [place] [address] [place] [address] [id number] [place] [address] September, Screening for diabetes mellitus Z13.1 and Acute non-recurrent frontal sinusitis J01.10 [facility] [address] [address] September, Sore throat J02.9 ; Body aches R52 and Strep throat J02.0 IMMUNIZATIONS No Known Immunizations SOCIAL HISTORY Never Assessed REASON FOR VISIT intake PLAN OF CARE Activity Details Follow Up Next Available Reason: F/U VITAL SIGNS MEDICATIONS Medication Instructions Dosage Frequency Start Date End Date Duration Status Meclizine HCl Active RESULTS No Results PROCEDURES Procedure Date Ordered Result Body Site Psych diagnostic evaluation, established patient November 06, 2017 INSTRUCTIONS MEDICATIONS ADMINISTERED No Known Medications MEDICAL (GENERAL) HISTORY Type Description Date Medical History 110-V electrocution August 2017 Medical History seizure when child and when working for [employer] in 20s after exposure to chemicals Surgical History tubes in ears as a child Hospitalization History [place] intptient 20s
--- OUTSIDE RECORDS SUMMARY | 2018-10-13 12:04 | XMS REPORT ---
Author Author LETA BENITEZ Organization [facility] Address [address] [place] [address] Phone Unavailable Care Team Providers Care Care Team Coordinator Scheduler Name Role Phone LETA BENITEZ Unavailable Unavailable PROBLEMS Type Condition ICD9-CM Code ROI52-XN Code Onset Dates Condition Status SNOMED Code Problem Post concussion syndrome F07.81 Active 42253309 Problem Sinusitis chronic, frontal J32.1 Active 66379302 Problem YOJANA (generalized anxiety disorder) F41.1 Active 71756887 Problem Panic disorder F41.0 Active 446023992 Problem Tactile hypesthesia R20.1 Active 58243400 Problem Tinnitus of both ears H93.13 Active 8760559154139 Problem Severe episode of recurrent major depressive disorder, without psychotic features F33.2 Active 70780871 Problem Accidental electrocution, subsequent encounter T75.4XXD Active 011784212 ALLERGIES No Information ENCOUNTERS Encounter Location Date Diagnosis [facility] [address] [place] [address] Jan, [place] [address] [place] [id number] [place] [address] Oct, Panic disorder F41.0 ; Severe episode of recurrent major depressive disorder, without psychotic features F33.2 and YOJANA (generalized anxiety disorder) F41.1 [facility] [address] [place] [address] Oct, [facility] [address] [place] [address] Oct, [facility] [address] [place] [id number] [place] [address] Oct, Panic disorder F41.0 and Severe episode of recurrent major depressive disorder, without psychotic features F33.2 [place] [address] [place] [id number] [place] [address] Oct, Post concussion syndrome F07.81 ; Post-concussion headache G44.309 ; Weakness R53.1 ; Vision abnormalities H53.9 ; Tinnitus of both ears H93.13 ; Cervicalgia M54.2 ; Tactile hypesthesia R20.1 and Accidental electrocution, subsequent encounter T75.4XXD [facility] [address] [place] [address] [id number] [place] [address] Oct, Concussion with loss of consciousness, initial encounter S06.0X9A and Concussion with loss of consciousness, subsequent encounter S06.0X9D [facility] [address] [address] Oct, Concussion with loss of consciousness, subsequent encounter S06.0X9D [facility] [address] [address] Oct, Concussion with loss of consciousness, subsequent encounter S06.0X9D [facility] [address] [address] September, [facility] [address] [address] September, [facility] [address] [address] September, Concussion with loss of consciousness, initial encounter S06.0X9A [facility] [address] [place] [id number] [place] [address] September, [facility] [address] [place] [address] [id number] [place] [address] September, Concussion with loss of consciousness, initial encounter S06.0X9A [facility] [address] [address] September, Concussion with loss of consciousness, initial encounter S06.0X9A [facility] [address] [place] [id number] [place] [address] September, [place] [address] [place] [id number] [place] [address] September, [place] [address] [address] September, Concussion with loss of consciousness, initial encounter S06.0X9A [place] [address] [address] Aug, Concussion with loss of consciousness, initial encounter S06.0X9A [place] [address] [address] Aug, [place] [address] [address] Aug, [place] [address] [address] Aug, Injury of head, initial encounter S09.90XA [place] [address] [address] Aug, Foot pain, left M79.672 and BMI 40.0-44.9, adult Z68.41 [facility] [address] [address] Aug, BMI 40.0-44.9, adult Z68.41 ; Foot pain, left M79.672 and Scratches T14.8XXA [facility] [place] [id number] [place] [address] May, Fever R50.9 ; SOB (shortness of breath) R06.02 ; Influenza A J10.1 and BMI 40.0-44.9, adult Z68.41 [facility] [address] [address] Apr, Other viral agents as the cause of diseases classified elsewhere B97.89 and Acute upper respiratory infection, unspecified J06.9 [facility] [address] [address] 16 Dec, 2016 Grade I hemorrhoids K64.0 ; Umbilical hernia without obstruction and without gangrene K42.9 and 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 [address] [place] [address] [address] [address] 14 Sep, 2016 Sore throat J02.9 ; Body aches R52 and Strep throat J02.0 IMMUNIZATIONS No Known Immunizations SOCIAL HISTORY Never Assessed REASON FOR VISIT lab per O[facility] PLAN OF CARE VITAL SIGNS MEDICATIONS Unknown Medications RESULTS No Results PROCEDURES Procedure Date Ordered Result Body Site COMPREHEN METABOLIC PANEL October 18, 2017 COMPLETE CBC W/AUTO DIFF WBC October 18, 2017 VENIPUNCT, ROUTINE* October 18, 2017 RHEUMATOID FACTOR, QUANT October 18, 2017 INSTRUCTIONS MEDICATIONS ADMINISTERED No Known Medications MEDICAL (GENERAL) HISTORY Type Description Date Medical History 110-V electrocution August 2017 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
--- OUTSIDE RECORDS SUMMARY | 2018-10-13 12:05 | XMS REPORT ---
Author Author LETA BENITEZ Organization [facility] Address [address] [place] [address] Phone Unavailable Care Team Providers Care Try Out Person Name Role Phone LETA BENITEZ Unavailable Unavailable PROBLEMS Type Condition ICD9-CM Code [id number] Code Onset Dates Condition Status SNOMED Code Problem Post concussion syndrome F07.81 Active 85440268 Problem Sinusitis chronic, frontal J32.1 Active 98256735 Problem YOJANA (generalized anxiety disorder) F41.1 Active 18086423 Problem Panic disorder F41.0 Active 367658505 Problem Tactile hypesthesia R20.1 Active 17622245 Problem Tinnitus of both ears H93.13 Active 1574810274103 Problem Severe episode of recurrent major depressive disorder, without psychotic features F33.2 Active 92552500 Problem Accidental electrocution, subsequent encounter T75.4XXD Active 633666095 ALLERGIES No Information ENCOUNTERS Encounter Location Date Diagnosis [facility] [id number] [place] [address] Jan, [place] [address] [place] [id number] [place] [address] Oct, Panic disorder F41.0 ; Severe episode of recurrent major depressive disorder, without psychotic features F33.2 and YOJANA (generalized anxiety disorder) F41.1 [facility] [id number] [place] [address] Oct, [facility] [id number] [place] [address] Oct, [facility] [address] [place] [id number] [place] [address] Oct, Panic disorder F41.0 and Severe episode of recurrent major depressive disorder, without psychotic features F33.2 [place] [address] [place] [id number] [place] [address] Oct, Post concussion syndrome F07.81 ; Post-concussion headache G44.309 ; Weakness R53.1 ; Vision abnormalities H53.9 ; Tinnitus of both ears H93.13 ; Cervicalgia M54.2 ; Tactile hypesthesia R20.1 and Accidental electrocution, subsequent encounter T75.4XXD [facility] [address] [place] [id number] [place] [address] Oct, Concussion with loss of consciousness, initial encounter S06.0X9A and Concussion with loss of consciousness, subsequent encounter S06.0X9D [facility] [address] [address] Oct, Concussion with loss of consciousness, subsequent encounter S06.0X9D [facility] [address] [address] Oct, Concussion with loss of consciousness, subsequent encounter S06.0X9D [facility] [address] [address] September, [facility] [address] [address] September, [facility] [address] [address] September, Concussion with loss of consciousness, initial encounter S06.0X9A [facility] [address] [place] [id number] [place] [address] September, [facility] [address] [place] [id number] [place] [address] September, Concussion with loss of consciousness, initial encounter S06.0X9A [facility] [address] [address] September, Concussion with loss of consciousness, initial encounter S06.0X9A [facility] [address] [place] [id number] [place] [address] September, [place] [address] [place] [id number] [place] [address] September, [place] [address] [address] September, Concussion with loss of consciousness, initial encounter S06.0X9A [place] [address] [address] Aug, Concussion with loss of consciousness, initial encounter S06.0X9A [place] [address] [address] Aug, [place] [address] [address] Aug, [place] [address] [address] Aug, Injury of head, initial encounter S09.90XA [place] [address] [address] Aug, Foot pain, left M79.672 and BMI 40.0-44.9, adult Z68.41 [facility] [address] [address] Aug, BMI 40.0-44.9, adult Z68.41 ; Foot pain, left M79.672 and Scratches T14.8XXA [facility] [place] [id number] [place] [address] May, Fever R50.9 ; SOB (shortness of breath) R06.02 ; Influenza A J10.1 and BMI 40.0-44.9, adult Z68.41 [facility] [address] [address] Apr, Other viral agents as the cause of diseases classified elsewhere B97.89 and Acute upper respiratory infection, unspecified J06.9 [facility] [address] [address] Dec, Grade I hemorrhoids K64.0 ; Umbilical hernia without obstruction and without gangrene K42.9 and 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 [facility] [id number] [address] 13 Nov, 2016 [facility] [id number] [address] Nov, [facility] [address] [place] [id number] [place] [address] Nov, Right upper quadrant abdominal pain R10.11 [facility] [address] [place] [address] September, Screening for diabetes mellitus Z13.1 and Acute non-recurrent frontal sinusitis J01.10 [facility] [address] [address] September, Sore throat J02.9 ; Body aches [...] in ears as a child Hospitalization History [place] intptient 20s
--- OUTSIDE RECORDS SUMMARY | 2018-10-13 12:05 | XMS REPORT ---
Author Author LETA BENITEZ Organization [facility] Address [address] [place] [address] Phone Unavailable Care Team Providers Care Development Lead Name Role Phone LETA BENITEZ Unavailable Unavailable PROBLEMS Type Condition ICD9-CM Code [id number] Code Onset Dates Condition Status SNOMED Code Problem Post concussion syndrome F07.81 Active 26062242 Problem Sinusitis chronic, frontal J32.1 Active 50745610 Problem YOJANA (generalized anxiety disorder) F41.1 Active 34273668 Problem Panic disorder F41.0 Active 196851551 Problem Tactile hypesthesia R20.1 Active 28970277 Problem Tinnitus of both ears H93.13 Active 8663382740947 Problem Severe episode of recurrent major depressive disorder, without psychotic features F33.2 Active 82646093 Problem Accidental electrocution, subsequent encounter T75.4XXD Active 891206076 ALLERGIES No Information ENCOUNTERS Encounter Location Date Diagnosis [facility] [id number] [place] [address] Jan, [place] [address] [place] [id number] [place] [address] Oct, Panic disorder F41.0 ; Severe episode of recurrent major depressive disorder, without psychotic features F33.2 and YOJANA (generalized anxiety disorder) F41.1 [facility] [address] [place] [address] Oct, [facility] [id number] [place] [address] Oct, [facility] [address] [place] [id number] [place] [address] Oct, Panic disorder F41.0 and Severe episode of recurrent major depressive disorder, without psychotic features F33.2 [place] [address] [place] [id number] [place] [address] Oct, Post concussion syndrome F07.81 ; Post-concussion headache G44.309 ; Weakness R53.1 ; Vision abnormalities H53.9 ; Tinnitus of both ears H93.13 ; Cervicalgia M54.2 ; Tactile hypesthesia R20.1 and Accidental electrocution, subsequent encounter T75.4XXD [facility] [address] [place] [id number] [place] [address] Oct, Concussion with loss of consciousness, initial encounter S06.0X9A and Concussion with loss of consciousness, subsequent encounter S06.0X9D [facility] [address] [address] Oct, Concussion with loss of consciousness, subsequent encounter S06.0X9D [facility] [address] [address] Oct, Concussion with loss of consciousness, subsequent encounter S06.0X9D [facility] [address] [address] September, [facility] [address] [address] September, [facility] [address] [address] September, Concussion with loss of consciousness, initial encounter S06.0X9A [facility] [address] [place] [id number] [place] [address] September, [facility] [address] [place] [id number] [place] [address] September, Concussion with loss of consciousness, initial encounter S06.0X9A [facility] [address] [address] September, Concussion with loss of consciousness, initial encounter S06.0X9A [facility] [address] [place] [id number] [place] [address] September, [place] [address] [place] [id number] [place] [address] September, [place] [address] [address] September, Concussion with loss of consciousness, initial encounter S06.0X9A [place] [address] [address] Aug, Concussion with loss of consciousness, initial encounter S06.0X9A [place] [address] [address] Aug, [place] [address] [address] Aug, [place] [address] [address] Aug, Injury of head, initial encounter S09.90XA [place] [address] [address] Aug, Foot pain, left M79.672 and BMI 40.0-44.9, adult Z68.41 [facility] IN [address] [address] Aug, BMI 40.0-44.9, adult Z68.41 ; Foot pain, left M79.672 and Scratches T14.8XXA [facility] [place] [id number] [place] [address] May, Fever R50.9 ; SOB (shortness of breath) R06.02 ; Influenza A J10.1 and BMI 40.0-44.9, adult Z68.41 [facility] IN [address] [address] Apr, Other viral agents as the cause of diseases classified elsewhere B97.89 and Acute upper respiratory infection, unspecified J06.9 [facility] IN [address] [address] Dec, Grade I hemorrhoids K64.0 ; Umbilical hernia without obstruction and without gangrene K42.9 and 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 [facility] [address] [address] 13 Nov, 2016 [facility] [address] [address] Nov, [facility] [address] [place] [id number] [place] [address] Nov, Right upper quadrant abdominal pain R10.11 [facility] [address] [place] [address] September, Screening for diabetes mellitus Z13.1 and Acute non-recurrent frontal sinusitis J01.10 [facility] [address] [address] September, Sore throat J02.9 ; Body aches [...] in ears as a child Hospitalization History [place] intptient 20s
--- OUTSIDE RECORDS SUMMARY | 2018-10-13 12:05 | XMS REPORT ---
Author Author LETA BENITEZ Organization [facility] Address [address] [place] [address] Phone Unavailable Care Team Providers Care Prenatal Nurse Name Role Phone LETA BENITEZ Unavailable Unavailable PROBLEMS Type Condition ICD9-CM Code YBU30-QJ Code Onset Dates Condition Status SNOMED Code Problem Post concussion syndrome F07.81 Active 09866335 Problem Sinusitis chronic, frontal J32.1 Active 05535644 Problem YOJANA (generalized anxiety disorder) F41.1 Active 08581397 Problem Panic disorder F41.0 Active 506462518 Problem Tactile hypesthesia R20.1 Active 06983157 Problem Tinnitus of both ears H93.13 Active 1604107566630 Problem Severe episode of recurrent major depressive disorder, without psychotic features F33.2 Active 59941712 Problem Accidental electrocution, subsequent encounter T75.4XXD Active 255810123 ALLERGIES No Information ENCOUNTERS Encounter Location Date Diagnosis [facility] [address] [place] [address] Jan, [place] [address] [place] [id number] [place] [address] Oct, Panic disorder F41.0 ; Severe episode of recurrent major depressive disorder, without psychotic features F33.2 and YOJANA (generalized anxiety disorder) F41.1 [facility] [address] [place] [address] Oct, [facility] [address] [place] [address] Oct, [facility] [address] [place] [id number] [place] [address] Oct, Panic disorder F41.0 and Severe episode of recurrent major depressive disorder, without psychotic features F33.2 [place] [address] [place] [id number] [place] [address] Oct, Post concussion syndrome F07.81 ; Post-concussion headache G44.309 ; Weakness R53.1 ; Vision abnormalities H53.9 ; Tinnitus of both ears H93.13 ; Cervicalgia M54.2 ; Tactile hypesthesia R20.1 and Accidental electrocution, subsequent encounter T75.4XXD [facility] [address] [place] [id number] [place] [address] Oct, Concussion with loss of consciousness, initial encounter S06.0X9A and Concussion with loss of consciousness, subsequent encounter S06.0X9D [facility] [address] [address] Oct, Concussion with loss of consciousness, subsequent encounter S06.0X9D [facility] [address] [address] Oct, Concussion with loss of consciousness, subsequent encounter S06.0X9D [facility] [address] [address] September, [facility] [address] [address] September, [facility] [address] [address] September, Concussion with loss of consciousness, initial encounter S06.0X9A [facility] [address] [place] [id number] [place] [address] September, [facility] [address] [place] [id number] [place] [address] September, Concussion with loss of consciousness, initial encounter S06.0X9A [facility] [address] [address] September, Concussion with loss of consciousness, initial encounter S06.0X9A [facility] [address] [place] [id number] [place] [address] September, [place] [address] [place] [id number] [place] [address] September, [place] [address] [address] September, Concussion with loss of consciousness, initial encounter S06.0X9A [place] [address] [address] Aug, Concussion with loss of consciousness, initial encounter S06.0X9A [place] [address] [address] Aug, [place] [address] [address] Aug, [place] [address] [address] Aug, Injury of head, initial encounter S09.90XA [place] [address] [address] Aug, Foot pain, left M79.672 and BMI 40.0-44.9, adult Z68.41 [facility] [address] [address] Aug, BMI 40.0-44.9, adult Z68.41 ; Foot pain, left M79.672 and Scratches T14.8XXA [facility] [place] [id number] [place] [address] May, Fever R50.9 ; SOB (shortness of breath) R06.02 ; Influenza A J10.1 and BMI 40.0-44.9, adult Z68.41 [facility] [address] [address] Apr, Other viral agents as the cause of diseases classified elsewhere B97.89 and Acute upper respiratory infection, unspecified J06.9 [facility] [address] [address] Dec, Grade I hemorrhoids K64.0 ; Umbilical hernia without obstruction and without gangrene K42.9 and 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 [facility] [address] [address] 13 Nov, 2016 [facility] [address] [address] Nov, [facility] [address] [place] [id number] [place] [address] Nov, Right upper quadrant abdominal pain R10.11 [facility] [address] [place] [address] September, Screening for diabetes mellitus Z13.1 and Acute non-recurrent frontal sinusitis J01.10 [facility] [address] [address] September, Sore throat J02.9 ; Body aches [...] in ears as a child Hospitalization History [place] intptient 20s
--- OUTSIDE RECORDS SUMMARY | 2018-10-13 12:05 | XMS REPORT ---
Author Author LETA BENITEZ Organization [facility] Address [address] [place] [address] Phone Unavailable Care Team Providers Care Heat Treat Technician Name Role Phone LETA BENITEZ Unavailable Unavailable PROBLEMS Type Condition ICD9-CM Code [id number] Code Onset Dates Condition Status SNOMED Code Problem Post concussion syndrome F07.81 Active 78423312 Problem Sinusitis chronic, frontal J32.1 Active 03629664 Problem YOJANA (generalized anxiety disorder) F41.1 Active 36111617 Problem Panic disorder F41.0 Active 424034001 Problem Tactile hypesthesia R20.1 Active 81516227 Problem Tinnitus of both ears H93.13 Active 4804227422861 Problem Severe episode of recurrent major depressive disorder, without psychotic features F33.2 Active 21056042 Problem Accidental electrocution, subsequent encounter T75.4XXD Active 606887813 ALLERGIES No Information ENCOUNTERS Encounter Location Date Diagnosis [facility] [address] [place] [address] Jan, [place] [address] [place] [id number] [place] [address] Oct, Panic disorder F41.0 ; Severe episode of recurrent major depressive disorder, without psychotic features F33.2 and YOJANA (generalized anxiety disorder) F41.1 [facility] [address] [place] [address] Oct, [facility] [address] [place] [address] Oct, [facility] [address] [place] [id number] [place] [address] Oct, Panic disorder F41.0 and Severe episode of recurrent major depressive disorder, without psychotic features F33.2 [place] [address] [place] [id number] [place] [address] Oct, Post concussion syndrome F07.81 ; Post-concussion headache G44.309 ; Weakness R53.1 ; Vision abnormalities H53.9 ; Tinnitus of both ears H93.13 ; Cervicalgia M54.2 ; Tactile hypesthesia R20.1 and Accidental electrocution, subsequent encounter T75.4XXD [facility] [address] [place] [id number] [place] [address] Oct, Concussion with loss of consciousness, initial encounter S06.0X9A and Concussion with loss of consciousness, subsequent encounter S06.0X9D [facility] [address] [address] Oct, Concussion with loss of consciousness, subsequent encounter S06.0X9D [facility] [address] [address] Oct, Concussion with loss of consciousness, subsequent encounter S06.0X9D [facility] [address] [address] September, [facility] [address] [address] September, [facility] [address] [address] September, Concussion with loss of consciousness, initial encounter S06.0X9A [facility] [address] [place] [id number] [place] [address] September, [facility] [address] [place] [place] [id number] [place] [address] September, Concussion with loss of consciousness, initial encounter S06.0X9A [facility] [address] [address] September, Concussion with loss of consciousness, initial encounter S06.0X9A [facility] [address] [place] [id number] [place] [address] September, [place] [address] [place] [id number] [place] [address] September, [place] [address] [address] September, Concussion with loss of consciousness, initial encounter S06.0X9A [place] [address] [address] Aug, Concussion with loss of consciousness, initial encounter S06.0X9A [place] [address] [address] Aug, [place] [address] [address] Aug, [place] [address] [address] Aug, Injury of head, initial encounter S09.90XA [place] [address] [address] Aug, Foot pain, left M79.672 and BMI 40.0-44.9, adult Z68.41 [facility] [address] [address] Aug, BMI 40.0-44.9, adult Z68.41 ; Foot pain, left M79.672 and Scratches T14.8XXA [facility] [place] [id number] [place] [address] May, Fever R50.9 ; SOB (shortness of breath) R06.02 ; Influenza A J10.1 and BMI 40.0-44.9, adult Z68.41 [facility] [address] [address] Apr, Other viral agents as the cause of diseases classified elsewhere B97.89 and Acute upper respiratory infection, unspecified J06.9 [facility] [address] [address] Dec, Grade I hemorrhoids K64.0 ; Umbilical hernia without obstruction and without gangrene K42.9 and 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 [address] [address] September, Sore throat J02.9 ; Body aches R52 and Strep throat J02.0 IMMUNIZATIONS No Known Immunizations SOCIAL HISTORY Never Assessed REASON FOR VISIT Lab Order PLAN OF CARE VITAL SIGNS MEDICATIONS Unknown Medications RESULTS No Results PROCEDURES No Known procedures INSTRUCTIONS MEDICATIONS ADMINISTERED No Known Medications MEDICAL (GENERAL) HISTORY Type Description Date Medical History 110-V electrocution August 2017 Medical History seizure when child and when working for [employer] in 20s after exposure to chemicals Surgical History tubes in ears as a child Hospitalization History [place] intptient 20s
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
--- OUTSIDE RECORDS SUMMARY | 2018-10-13 12:06 | XMS REPORT ---
Author Author BARBIE Pack Organization [facility] Address [address] [place] [address] Care Team Providers Care Software Technician Name Role Phone BARBIE Pack Unavailable PROBLEMS Type Condition ICD9-CM Code FIR92-AF Code Onset Dates Condition Status SNOMED Code Problem Post concussion syndrome F07.81 Active 04063702 Problem Sinusitis chronic, frontal J32.1 Active 10361336 Problem YOJANA (generalized anxiety disorder) F41.1 Active 64701364 Problem Panic disorder F41.0 Active 905495164 Problem Tactile hypesthesia R20.1 Active 95446066 Problem Tinnitus of both ears H93.13 Active 6412877046797 Problem Severe episode of recurrent major depressive disorder, without psychotic features F33.2 Active 05492263 Problem Accidental electrocution, subsequent encounter T75.4XXD Active 924324708 ALLERGIES Substance Reaction Event Type Date Status Penicillin V Potassium shortness of breath Drug Allergy May, Active Codeine Sulfate shortness of breath Drug Allergy May, Active All Antidepressants shortness of breath Non Drug Allergy May, Active ENCOUNTERS Encounter Location Date Diagnosis [facility] [id number] [address] Jan, [facility] [address] [place] [address] Dec, [facility] [id number], [place] [address] Nov, [facility] [address] [place] [id number] [place] [address] Oct, Panic disorder F41.0 ; Severe episode of recurrent major depressive disorder, without psychotic features F33.2 and YOJANA (generalized anxiety disorder) F41.1 [facility] [address] [id number] [place] [address] Oct, [facility] [id number] [place] [address] Oct, [facility] [address] [place] [id number] [place] [address] Oct, Panic disorder F41.0 and Severe episode of recurrent major depressive disorder, without psychotic features F33.2 [facility] [address] [place] [id number] [place] [address] Oct, Post concussion syndrome F07.81 ; Post-concussion headache G44.309 ; Weakness R53.1 ; Vision abnormalities H53.9 ; Tinnitus of both ears H93.13 ; Cervicalgia M54.2 ; Tactile hypesthesia R20.1 and Accidental electrocution, subsequent encounter T75.4XXD [place] [address] [place] [id number] [place] [address] Oct, Concussion with loss of consciousness, initial encounter S06.0X9A and Concussion with loss of consciousness, subsequent encounter S06.0X9D [facility] [address] [place] [id number] [place] [address] Oct, Concussion with loss of consciousness, subsequent encounter S06.0X9D [facility] [address] [place] [id number] [place] [address] Oct, Concussion with loss of consciousness, subsequent encounter S06.0X9D [facility] [address] [place] [id number] [place] [address] September, [facility] [id number] [place] [address] September, [facility] [address] [place] [id number] [place] [address] September, Concussion with loss of consciousness, initial encounter S06.0X9A [facility] [address] [place] [id number] [place] [address] September, [facility] [address] [place] [id number] [place] [address] September, Concussion with loss of consciousness, initial encounter S06.0X9A [place] [address] [address] September, Concussion with loss of consciousness, initial encounter S06.0X9A [place] [address] [address] September, [place] [address] [address] September, [place] [address] [address] September, Concussion with loss of consciousness, initial encounter S06.0X9A [place] [address] [address] Aug, Concussion with loss of consciousness, initial encounter S06.0X9A [place] [address] [place] [id number] [place] [address] Aug, [place] [address] [address] Aug, [place] [address] [place] [id number] [place] [address] Aug, Injury of head, initial encounter S09.90XA [place] [address] [place] [id number] [place] [address] Aug, Foot pain, left M79.672 and BMI 40.0-44.9, adult Z68.41 [facility] [address] [address] Aug, BMI 40.0-44.9, adult Z68.41 ; Foot pain, left M79.672 and Scratches T14.8XXA [facility] [address] [address] May, Fever R50.9 ; SOB (shortness of breath) R06.02 ; Influenza A J10.1 and BMI 40.0-44.9, adult Z68.41 [place] [address] [id number] [place] [address] 04 Apr, 2017 Other viral agents as the cause of diseases classified elsewhere B97.89 and Acute upper respiratory infection, unspecified J06.9 [place] [address] [place] [id number] [place] [address] 16 Dec, 2016 Grade I hemorrhoids K64.0 ; Umbilical hernia without obstruction and without gangrene K42.9 and 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 [place] [address] [address] Nov, [place] [address] [address] Nov, [place] [address] [address] Nov, Right upper quadrant abdominal pain R10.11 [place] [address] [address] September, Screening for diabetes mellitus Z13.1 and Acute non-recurrent frontal sinusitis J01.10 [place] [address] [place] [id number] [place] [address] September, Sore throat J02.9 ; Body aches R52 and Strep throat J02.0 IMMUNIZATIONS No Known Immunizations SOCIAL HISTORY Never Assessed REASON FOR VISIT cough, runny nose, fever, all since this am. [email or web address] PLAN OF CARE Activity Details Follow Up prn Reason: VITAL SIGNS Height 67 in 2017-05-27 Weight 259.8 lbs 2017-05-27 Temperature 99.3 degrees Fahrenheit 2017-05-27 Heart Rate 80 bpm 2017-05-27 Respiratory Rate 22 2017-05-27 Oximetry on room air:97 % 2017-05-27 BMI 40.69 kg/m2 2017-05-27 Blood pressure systolic 126 mmHg 2017-05-27 Blood pressure diastolic 84 mmHg 2017-05-27 MEDICATIONS Medication Instructions Dosage Frequency Start Date End Date Duration Status Tamiflu 75 MG Orally Twice a day 1 capsule 12h May, 5 day(s) Active Omeprazole 20 mg Orally Once a day 1 capsule 24h 11 Nov, 2016 30 day(s) Not-Taking Nan-Volcano Plus Cold 2-7.8-325 MG Orally every 4 hrs 2 tablets as needed 4h Not-Taking RESULTS Name Result Date Reference Range INFLUENZA A & B (IN HOUSE) 2017-05-27 INFLUENZA A positive INFLUENZA B negative Control + Lot # [id number] Exp date 2019 PROCEDURES Procedure Date Ordered Result Body Site INFLUENZA ASSAY W/OPTIC May 27, 2017 MEASURE BLOOD OXYGEN LEVEL May 27, 2017 INSTRUCTIONS MEDICATIONS ADMINISTERED No Known Medications MEDICAL (GENERAL) HISTORY Type Description Date Medical History 110-V electrocution August 2017 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
--- OUTSIDE RECORDS SUMMARY | 2018-10-13 12:06 | XMS REPORT ---
Author Author LETA BENITEZ Organization [facility] Address [address] [place] [address] Phone Unavailable Care Team Providers Care Furnace Unloader Name Role Phone LETA BENITEZ Unavailable Unavailable PROBLEMS Type Condition ICD9-CM Code JUV85-UH Code Onset Dates Condition Status SNOMED Code Problem Post concussion syndrome F07.81 Active 11161583 Problem Sinusitis chronic, frontal J32.1 Active 93591196 Problem YOJANA (generalized anxiety disorder) F41.1 Active 83116901 Problem Panic disorder F41.0 Active 736048459 Problem Tactile hypesthesia R20.1 Active 33996103 Problem Tinnitus of both ears H93.13 Active [id number] Problem Severe episode of recurrent major depressive disorder, without psychotic features F33.2 Active 84761647 Problem Accidental electrocution, subsequent encounter T75.4XXD Active 182136481 ALLERGIES No Information ENCOUNTERS Encounter Location Date Diagnosis [facility] [address] [place] [address] Jan, [place] [address] [place] [id number] [place] [address] Oct, Panic disorder F41.0 ; Severe episode of recurrent major depressive disorder, without psychotic features F33.2 and YOJANA (generalized anxiety disorder) F41.1 [facility] [address] [place] [address] Oct, [facility] [address] [place] [address] Oct, [facility] [address] [place] [id number] [place] [address] Oct, Panic disorder F41.0 and Severe episode of recurrent major depressive disorder, without psychotic features F33.2 [place] [address] [place] [id number] [place] [address] Oct, Post concussion syndrome F07.81 ; Post-concussion headache G44.309 ; Weakness R53.1 ; Vision abnormalities H53.9 ; Tinnitus of both ears H93.13 ; Cervicalgia M54.2 ; Tactile hypesthesia R20.1 and Accidental electrocution, subsequent encounter T75.4XXD [facility] [address] [place] [id number] [place] [address] Oct, Concussion with loss of consciousness, initial encounter S06.0X9A and Concussion with loss of consciousness, subsequent encounter S06.0X9D [facility] [address] [address] Oct, Concussion with loss of consciousness, subsequent encounter S06.0X9D [facility] [address] [address] Oct, Concussion with loss of consciousness, subsequent encounter S06.0X9D [facility] [address] [address] September, [facility] [address] [address] September, [facility] [address] [address] September, Concussion with loss of consciousness, initial encounter S06.0X9A [facility] [address] [place] [id number] [place] [address] September, [facility] [address] [place] [id number] [place] [address] September, Concussion with loss of consciousness, initial encounter S06.0X9A [facility] [address] [address] September, Concussion with loss of consciousness, initial encounter S06.0X9A [facility] [address] [place] [id number] [place] [address] September, [place] [address] [place] [address] [id number] [place] [address] September, [place] [address] [address] September, Concussion with loss of consciousness, initial encounter S06.0X9A [place] [address] [address] Aug, Concussion with loss of consciousness, initial encounter S06.0X9A [place] [address] [address] Aug, [place] [address] [address] Aug, [place] [address] [address] Aug, Injury of head, initial encounter S09.90XA [place] [address] [address] Aug, Foot pain, left M79.672 and BMI 40.0-44.9, adult Z68.41 [facility] [address] [address] Aug, BMI 40.0-44.9, adult Z68.41 ; Foot pain, left M79.672 and Scratches T14.8XXA [facility] [place] [id number] [place] [address] May, Fever R50.9 ; SOB (shortness of breath) R06.02 ; Influenza A J10.1 and BMI 40.0-44.9, adult Z68.41 [facility] [address] [address] Apr, Other viral agents as the cause of diseases classified elsewhere B97.89 and Acute upper respiratory infection, unspecified J06.9 [facility] [address] [address] Dec, Grade I hemorrhoids K64.0 ; Umbilical hernia without obstruction and without gangrene K42.9 and 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 [facility] [address] [address] 13 Nov, 2016 [facility] [address] [address] Nov, [facility] [address] [place] [address] [id number] [place] [address] 11 Nov, 2016 Right upper quadrant abdominal pain R10.11 [facility] [address] [place] [address] September, Screening for diabetes mellitus Z13.1 and Acute non-recurrent frontal sinusitis J01.10 [facility] [address] [place] [id number] [address] September, Sore throat J02.9 ; Body aches R52 and Strep throat J02.0 IMMUNIZATIONS No Known Immunizations SOCIAL HISTORY Never Assessed REASON FOR VISIT PLAN OF CARE VITAL SIGNS MEDICATIONS Unknown Medications RESULTS Name Result Date Reference Range CT Scan : Head w/o Contrast 2017-09-05 PROCEDURES No Known procedures INSTRUCTIONS MEDICATIONS ADMINISTERED No Known Medications MEDICAL (GENERAL) HISTORY Type Description Date Medical History 110-V electrocution August 2017 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
--- OUTSIDE RECORDS SUMMARY | 2018-10-13 12:06 | XMS REPORT ---
Author Author CHRISTIAN CRAIG Organization [facility] Address [address] [place] [address] Care Team Providers Care Knowledge Architect Name Role Phone CHRISTIAN CRAIG Unavailable PROBLEMS Type Condition ICD9-CM Code [id number] Code Onset Dates Condition Status SNOMED Code Problem Sinusitis chronic, frontal J32.1 Active 52839633 ALLERGIES Substance Reaction Event Type Date Status Penicillin V Potassium shortness of breath Drug Allergy Apr, Active Codeine Sulfate shortness of breath Drug Allergy Apr, Active All Antidepressants shortness of breath Non Drug Allergy Apr, Active ENCOUNTERS Encounter Location Date Diagnosis [facility] [address] [place] [address] Oct, [facility] [address] [place] [address] [id number] [place] [address] Oct, [facility] [address] [place] [id number] [place] [address] Oct, Concussion with loss of consciousness, initial encounter S06.0X9A and Concussion with loss of consciousness, subsequent encounter S06.0X9D [facility] [address] [place] [address] Oct, Concussion with loss of consciousness, subsequent encounter S06.0X9D [facility] [address] [place] [address] Oct, Concussion with loss of consciousness, subsequent encounter S06.0X9D [facility] [address] [place] [address] September, [facility] [address] [place] [id number] [place] [address] September, [facility] [address] [place] [id number] [place] [address] September, Concussion with loss of consciousness, initial encounter S06.0X9A [facility] [address] [place] [id number] [place] [address] September, [facility] [address] [place] [address] [id number] [place] [address] September, Concussion with loss of consciousness, initial encounter S06.0X9A [facility] [address] [place] [address] [id number] [place] [address] September, Concussion with loss of consciousness, initial encounter S06.0X9A [facility] [address] [place] [id number] [place] [address] September, [facility] [address] [place] [id number] [place] [address] September, [facility] [address] [place] [address] [id number] [place] [address] September, Concussion with loss of consciousness, initial encounter S06.0X9A [facility] [address] [place] [id number] [place] [address] Aug, Concussion with loss of consciousness, initial encounter S06.0X9A [facility] [address] [place] [id number] [place] [address] Aug, [facility] [address] [place] [address] [id number] [place] [address] Aug, [facility] [address] [place] [id number] [place] [address] Aug, Injury of head, initial encounter S09.90XA [facility] [address] [place] [id number] [place] [address] Aug, Foot pain, left M79.672 and BMI 40.0-44.9, adult Z68.41 [facility] [address] [id number] [place] [address] Aug, BMI 40.0-44.9, adult Z68.41 ; Foot pain, left M79.672 and Scratches T14.8XXA [facility] [place] [address] [address] May, Fever R50.9 ; SOB (shortness of breath) R06.02 ; Influenza A J10.1 and BMI 40.0-44.9, adult Z68.41 [facility] [place] [address] [address] Apr, Other viral agents as the cause of diseases classified elsewhere B97.89 and Acute upper respiratory infection, unspecified J06.9 [facility] [place] [id number] [place] [address] Dec, Grade I hemorrhoids K64.0 ; Umbilical hernia without obstruction and without gangrene K42.9 and 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 [place] [address] [place] [id number] [place] [address] Nov, [place] [address] [address] Nov, [place] [address] [address] Nov, Right upper quadrant abdominal pain R10.11 [place] [address] [address] September, Screening for diabetes mellitus Z13.1 and Acute non-recurrent frontal sinusitis J01.10 [facility] [place] [address] [address] September, Sore throat J02.9 ; Body aches R52 and Strep throat J02.0 IMMUNIZATIONS No Known Immunizations SOCIAL HISTORY Never Assessed REASON FOR VISIT Stomach ache/low grade fever 99 started this morning JStrasserRN PLAN OF CARE Activity Details Follow Up prn Reason: VITAL SIGNS Height 67 in 2017-04-22 Weight 268 lbs 2017-04-22 Temperature 98.5 degrees Fahrenheit 2017-04-22 Heart Rate 78 bpm 2017-04-22 Respiratory Rate 20 2017-04-22 BMI 41.97 kg/m2 2017-04-22 Blood pressure systolic 124 mmHg 2017-04-22 Blood pressure diastolic 82 mmHg 2017-04-22 MEDICATIONS Medication Instructions Dosage Frequency Start Date End Date Duration Status Omeprazole 20 mg Orally Once a day 1 capsule 24h Nov, 30 day(s) Not-Taking [place] Plus Cold 2-7.8-325 MG Orally every 4 hrs 2 tablets as needed 4h Active RESULTS No Results PROCEDURES No Known procedures INSTRUCTIONS MEDICATIONS ADMINISTERED No Known Medications MEDICAL (GENERAL) HISTORY Type Description Date Surgical History tubes in ears as a child
--- OUTSIDE RECORDS SUMMARY | 2018-10-13 12:06 | XMS REPORT ---
Author Author KEISHA DORSEY [facility] Address [address] [place] [address] Care Team Providers Care Regional Extension Service Specialist Name Role Phone KEISHA DORSEY Unavailable PROBLEMS Type Condition ICD9-CM Code NMC84-GB Code Onset Dates Condition Status SNOMED Code Problem Post concussion syndrome F07.81 Active 89311821 Problem Sinusitis chronic, frontal J32.1 Active 52290865 Problem YOJANA (generalized anxiety disorder) F41.1 Active 12691296 Problem Panic disorder F41.0 Active 229050847 Problem Tactile hypesthesia R20.1 Active 48678967 Problem Tinnitus of both ears H93.13 Active 6384398999875 Problem Severe episode of recurrent major depressive disorder, without psychotic features F33.2 Active 17602273 Problem Accidental electrocution, subsequent encounter T75.4XXD Active 151125187 ALLERGIES No Information ENCOUNTERS Encounter Location Date Diagnosis [place] [address] [address] Jan, [place] [address] [address] Oct, Panic disorder F41.0 ; Severe episode of recurrent major depressive disorder, without psychotic features F33.2 and YOJANA (generalized anxiety disorder) F41.1 [facility] [address] [place] [address] Oct, [facility] [address] [address] Oct, [facility] [address] [address] Oct, Panic disorder F41.0 and Severe episode of recurrent major depressive disorder, without psychotic features F33.2 [place] [address] [place] [address] Oct, Post concussion syndrome F07.81 ; Post-concussion headache G44.309 ; Weakness R53.1 ; Vision abnormalities H53.9 ; Tinnitus of both ears H93.13 ; Cervicalgia M54.2 ; Tactile hypesthesia R20.1 and Accidental electrocution, subsequent encounter T75.4XXD [facility] [address] [place] [id number] [place] [address] Oct, Concussion with loss of consciousness, initial encounter S06.0X9A and Concussion with loss of consciousness, subsequent encounter S06.0X9D [facility] [address] [place] [id number] [place] [address] Oct, Concussion with loss of consciousness, subsequent encounter S06.0X9D [facility] [address] [place] [address] [id number] [place] [address] Oct, Concussion with loss of consciousness, subsequent encounter S06.0X9D [facility] [address] [place] [id number] [place] [address] September, [facility] [address] [address] September, [facility] [address] [place] [id number] [place] [address] September, Concussion with loss of consciousness, initial encounter S06.0X9A [facility] [address] [place] [id number] [place] [address] September, [facility] [address] [place] [address] [id number] [place] [address] September, Concussion with loss of consciousness, initial encounter S06.0X9A [facility] [address] [place] [place] [id number] [place] [address] September, Concussion with loss of consciousness, initial encounter S06.0X9A [facility] [address] [place] [id number] [place] [address] September, [place] [address] [place] [address] September, [place] [address] [place] [id number] [place] [address] September, Concussion with loss of consciousness, initial encounter S06.0X9A [place] [address] [address] Aug, Concussion with loss of consciousness, initial encounter S06.0X9A [place] [address] [place] [id number] [place] [address] Aug, [place] [address] [place] [id number] [place] [address] Aug, [place] [address] [address] Aug, Injury of head, initial encounter S09.90XA [place] [address] [place] [id number] [place] [address] Aug, Foot pain, left M79.672 and BMI 40.0-44.9, adult Z68.41 [facility] [place] [id number] [place] [address] Aug, BMI 40.0-44.9, adult Z68.41 ; Foot pain, left M79.672 and Scratches T14.8XXA [facility] IN [address] [place] [address] May, Fever R50.9 ; SOB (shortness of breath) R06.02 ; Influenza A J10.1 and BMI 40.0-44.9, adult Z68.41 [facility] [place] [id number] [place] [address] Apr, Other viral agents as the cause of diseases classified elsewhere B97.89 and Acute upper respiratory infection, unspecified J06.9 [facility] [address] [place] [address] 16 Dec, 2016 Grade I hemorrhoids K64.0 ; Umbilical hernia without obstruction and without gangrene K42.9 and 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 [facility] [address], [place] [address] 13 Nov, 2016 [facility] [address] [place] [address] 13 Nov, 2016 [place] [address] [place] [id number] [place] [address] 11 Nov, 2016 Right upper quadrant abdominal pain R10.11 [place] [address] [place] [id number] [place] [address] 19 Sep, 2016 Screening for diabetes mellitus Z13.1 and Acute non-recurrent frontal sinusitis J01.10 [facility] IN [facility] [address] [place] [address] 14 Sep, 2016 Sore throat J02.9 ; Body aches R52 and Strep throat J02.0 IMMUNIZATIONS No Known Immunizations SOCIAL HISTORY Never Assessed REASON FOR VISIT Xray (walk-in) MHill RT(R) PLAN OF CARE VITAL SIGNS MEDICATIONS Unknown Medications RESULTS Name Result Date Reference Range Xray : Foot, Left 3 views (IN HOUSE) 2017-08-27 PROCEDURES Procedure Date Ordered Result Body Site X-RAY EXAM OF FOOT August 27, 2017 INSTRUCTIONS MEDICATIONS ADMINISTERED No Known Medications MEDICAL (GENERAL) HISTORY Type Description Date Medical History 110-V electrocution August 2017 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
--- OUTSIDE RECORDS SUMMARY | 2018-10-13 12:06 | XMS REPORT ---
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 Active 94486852 Problem YOJANA (generalized anxiety disorder) F41.1 Active 27761121 Problem Panic disorder F41.0 Active 465289171 Problem Tactile hypesthesia R20.1 Active 15217444 Problem Tinnitus of both ears H93.13 Active 8653135796925 Problem Severe episode of recurrent major depressive disorder, without psychotic features F33.2 Active 74541672 Problem Accidental electrocution, subsequent encounter T75.4XXD Active 163499513 ALLERGIES Substance Reaction Event Type Date Status Penicillin V Potassium shortness of breath Drug Allergy Aug, Active Codeine Sulfate shortness of breath Drug Allergy Aug, Active All Antidepressants shortness of breath Non Drug Allergy Aug, Active ENCOUNTERS Encounter Location Date Diagnosis [place] [id number] [place] [id number] [place] [address] Jan, [facility] [id number] [place] [address] Oct, Panic disorder F41.0 ; Severe episode of recurrent major depressive disorder, without psychotic features F33.2 and YOJANA (generalized anxiety disorder) F41.1 [facility] [address] [address] Oct, [facility] [id number] [place] [address] Oct, [facility] [address] [address] Oct, Panic disorder F41.0 and Severe episode of recurrent major depressive disorder, without psychotic features F33.2 [facility] [address] [address] Oct, Post concussion syndrome F07.81 ; Post-concussion headache G44.309 ; Weakness R53.1 ; Vision abnormalities H53.9 ; Tinnitus of both ears H93.13 ; Cervicalgia M54.2 ; Tactile hypesthesia R20.1 and Accidental electrocution, subsequent encounter T75.4XXD [facility] [address] [address] Oct, Concussion with loss of consciousness, initial encounter S06.0X9A and Concussion with loss of consciousness, subsequent encounter S06.0X9D [facility] [address] [address] Oct, Concussion with loss of consciousness, subsequent encounter S06.0X9D [facility] [address] [address] Oct, Concussion with loss of consciousness, subsequent encounter S06.0X9D [facility] [address] [address] September, [facility] [address] [address] September, [facility] [address] [address] September, Concussion with loss of consciousness, initial encounter S06.0X9A [facility] [address] [address] September, [facility] [address] [place] [id number] September, Concussion with loss of consciousness, initial encounter S06.0X9A [facility] [address] [address] September, Concussion with loss of consciousness, initial encounter S06.0X9A [place] [id number] [place] [address] September, [place] [id number] [place] [address] September, [place] [address] [address] September, Concussion with loss of consciousness, initial encounter S06.0X9A [place] [address] [address] Aug, Concussion with loss of consciousness, initial encounter S06.0X9A [place] [address] [address] Aug, [place] [address] [address] Aug, [place] [address] [address] Aug, Injury of head, initial encounter S09.90XA [place] [address] [address] Aug, Foot pain, left M79.672 and BMI 40.0-44.9, adult Z68.41 [facility] [address] [place] [id number] [place] [address] Aug, BMI 40.0-44.9, adult Z68.41 ; Foot pain, left M79.672 and Scratches T14.8XXA [facility] [address] [place] [address] May, Fever R50.9 ; SOB (shortness of breath) R06.02 ; Influenza A J10.1 and BMI 40.0-44.9, adult Z68.41 [facility] WALK IN [address] [address] Apr, Other viral agents as the cause of diseases classified elsewhere B97.89 and Acute upper respiratory infection, unspecified J06.9 [facility] [address] [address] Dec, Grade I hemorrhoids K64.0 ; Umbilical hernia without obstruction and without gangrene K42.9 and 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 [facility] [address] [place] [address] Nov, [place] [id number] [place] [address] Nov, [place] [id number] [place] [address] Nov, Right upper quadrant abdominal pain R10.11 [place] [id number] [place] [address] September, Screening for diabetes mellitus Z13.1 and Acute non-recurrent frontal sinusitis J01.10 [facility] [address] [address] September, Sore throat J02.9 ; Body aches R52 and Strep throat J02.0 IMMUNIZATIONS No Known Immunizations SOCIAL HISTORY Never Assessed REASON FOR VISIT foot pain, left x 1 week, starts at arch of foot and shoots up to knee, states s ome swelling is present. 2 small red bumps on left arm. 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.Terry PLAN OF CARE Activity Details Follow Up prn Reason: VITAL SIGNS Height 67 in 2017-08-25 Weight 256.2 lbs 2017-08-25 Temperature 99.6 degrees Fahrenheit 2017-08-25 Heart Rate 80 bpm 2017-08-25 Respiratory Rate 24 2017-08-25 BMI 40.12 kg/m2 2017-08-25 Blood pressure systolic 126 mmHg 2017-08-25 Blood pressure diastolic 68 mmHg 2017-08-25 MEDICATIONS Medication Instructions Dosage Frequency Start Date End Date Duration Status Omeprazole 20 mg Orally Once a day 1 capsule 24h Nov, 30 day(s) Not-Taking Tamiflu 75 MG Orally Twice a day 1 capsule 12h May, 5 day(s) Not-Taking [place] Plus Cold 2-7.8-325 MG Orally every 4 hrs 2 tablets as needed 4h Not-Taking RESULTS No Results PROCEDURES No Known procedures INSTRUCTIONS MEDICATIONS ADMINISTERED No Known Medications MEDICAL (GENERAL) HISTORY Type Description Date Medical History 110-V electrocution August 2017 Medical History seizure when child and when working for [employer] in 20s after exposure to chemicals Surgical History tubes in ears as a child Hospitalization History [facility] int[facility]
--- OUTSIDE RECORDS SUMMARY | 2018-10-13 12:06 | XMS REPORT ---
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 Active 79916366 Problem YOJANA (generalized anxiety disorder) F41.1 Active 54099297 Problem Panic disorder F41.0 Active 692553175 Problem Tactile hypesthesia R20.1 Active 94691346 Problem Tinnitus of both ears H93.13 Active 5380050100371 Problem Severe episode of recurrent major depressive disorder, without psychotic features F33.2 Active 03947710 Problem Accidental electrocution, subsequent encounter T75.4XXD Active 935473179 ALLERGIES No Information ENCOUNTERS Encounter Location Date Diagnosis [facility] [address] [place] [address] Jan, [place] [address] [place] [id number] [place] [address] Oct, Panic disorder F41.0 ; Severe episode of recurrent major depressive disorder, without psychotic features F33.2 and YOJANA (generalized anxiety disorder) F41.1 [facility] [address] [place] [address] Oct, [facility] [address] [place] [address] Oct, [facility] [address] [id number] [place] [address] Oct, Panic disorder F41.0 and Severe episode of recurrent major depressive disorder, without psychotic features F33.2 [place] [id number] [place] [address] Oct, Post concussion syndrome F07.81 ; Post-concussion headache G44.309 ; Weakness R53.1 ; Vision abnormalities H53.9 ; Tinnitus of both ears H93.13 ; Cervicalgia M54.2 ; Tactile hypesthesia R20.1 and Accidental electrocution, subsequent encounter T75.4XXD [facility] [id number] [place] [address] Oct, Concussion with loss of consciousness, initial encounter S06.0X9A and Concussion with loss of consciousness, subsequent encounter S06.0X9D [facility] [address] [address] Oct, Concussion with loss of consciousness, subsequent encounter S06.0X9D [facility] [address] [address] Oct, Concussion with loss of consciousness, subsequent encounter S06.0X9D [facility] [address] [address] September, [facility] [address] [address] September, [facility] [address] [address] September, Concussion with loss of consciousness, initial encounter S06.0X9A [facility] [id number] [place] [address] September, [facility] [id number] [place] [address] September, Concussion with loss of consciousness, initial encounter S06.0X9A [facility] [address] [address] September, Concussion with loss of consciousness, initial encounter S06.0X9A [facility] [id number] [place] [address] September, [place] [id number] [place] [address] September, [place] [address] [address] September, Concussion with loss of consciousness, initial encounter S06.0X9A [place] [address] [address] Aug, Concussion with loss of consciousness, initial encounter S06.0X9A [place] [address] [address] Aug, [place] [address] [address] Aug, [place] [address] [address] Aug, Injury of head, initial encounter S09.90XA [place] [address] [address] Aug, Foot pain, left M79.672 and BMI 40.0-44.9, adult Z68.41 [facility] WALK IN [address] [address] Aug, BMI 40.0-44.9, adult Z68.41 ; Foot pain, left M79.672 and Scratches T14.8XXA [facility] WALK IN [place] [id number] [place] [address] May, Fever R50.9 ; SOB (shortness of breath) R06.02 ; Influenza A J10.1 and BMI 40.0-44.9, adult Z68.41 [facility] WALK IN [address] [address] Apr, Other viral agents as the cause of diseases classified elsewhere B97.89 and Acute upper respiratory infection, unspecified J06.9 [facility] WALK IN [address] [address] Dec, Grade I hemorrhoids K64.0 ; Umbilical hernia without obstruction and without gangrene K42.9 and 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 [facility] [address] [address] 13 Nov, 2016 [facility] [address] [address] Nov, [facility] [address] [place] [id number] [place] [address] Nov, Right upper quadrant abdominal pain R10.11 [facility] [address] [place] [address] September, Screening for diabetes mellitus Z13.1 and Acute non-recurrent frontal sinusitis J01.10 [facility] [address] [address] September, Sore throat J02.9 ; Body aches [...] in ears as a child Hospitalization History [facility] int[facility]s
--- OUTSIDE RECORDS SUMMARY | 2018-10-13 12:07 | XMS REPORT | Continuity of Care Document ---
Author Organization Unknown Address Unknown Allergies There is no data. Medications There is no data. Problems There is no data. Procedures There is no data. Results Test Result Range RA (RHEUMATOID) FACTOR - 10/18/17 11:01 RHEUMATOID FACTOR <14 IU/mL <14 Encounters ACCT No. Visit Date/Time Discharge Status Pt. Type Provider Facility Loc./Unit Complaint [id number] 09/12/2018 18:05:00 09/12/2018 23:59:59 [facility] Outpatient [facility] APRN WALK IN CARE [id number] 10/18/2017 11:00:00 Document Registration
--- OUTSIDE RECORDS SUMMARY | 2018-10-13 12:07 | XMS REPORT ---
Author Author OLIVIA FAJARDO Organization [facility] Address [address] [place] [address] Care Team Providers Care Curb Supervisor Name Role Phone OLIVIA FAJARDO Unavailable PROBLEMS Type Condition ICD9-CM Code PPG26-EL Code Onset Dates Condition Status SNOMED Code Problem Sinusitis chronic, frontal J32.1 Active 00782264 ALLERGIES Substance Reaction Event Type Date Status Penicillin V Potassium shortness of breath Drug Allergy September, Active Codeine Sulfate shortness of breath Drug Allergy September, Active All Antidepressants shortness of breath Non Drug Allergy September, Active SOCIAL HISTORY Never Assessed PLAN OF CARE Activity Details Follow Up prn Reason: VITAL SIGNS Height 67 in 2016-10-05 Weight 265.2 lbs 2016-10-05 Temperature 100.0 degrees Fahrenheit 2016-10-05 Heart Rate 84 bpm 2016-10-05 Respiratory Rate 22 2016-10-05 BMI 41.53 kg/m2 2016-10-05 Blood pressure systolic 122 mmHg 2016-10-05 Blood pressure diastolic 70 mmHg 2016-10-05 MEDICATIONS Medication Instructions Dosage Frequency Start Date End Date Duration Status Pseudoephedrine HCl 60 mg Orally every 6 hrs 1 tablet as needed 6h September, 05 days Active Levaquin 750 MG Orally Once a day 1 tablet 24h September, September, 07 days Active RESULTS Name Result Date Reference Range A1C (IN HOUSE) 2016-10-05 A1C IN HOUSE 5.5 4.3 - 5.6 % Previous A1c n/a Lot [id number] Exp date 05/2018 GLUCOSE FINGERSTICK (IN HOUSE) GLU FINGERSTICK 180 PC 2 hours Lot # [id number] Exp date 01/05/2017 PROCEDURES Procedure Date Ordered Result Body Site GLYCATED HEMOGLOBIN TEST October 05, 2016 GLUCOSE BLOOD TEST October 05, 2016 IMMUNIZATIONS No Known Immunizations MEDICAL (GENERAL) HISTORY Type Description Date Surgical History tubes in ears as a child
[2018-10-13] MEDS ORDERED: NS IV 1000 ML 1,000 ML ONE (12:21)
[2018-10-13] MEDS ORDERED: ONDANSETRON 4 MG/2 ML (SDV) Z0FRAN IVP ONE (12:30)
[2018-10-13] MEDS ORDERED: ASPIRIN 81 MG CHEW (CHILDREN'S ASA) PO ONE (12:30)
[2018-10-13 12:33] LABS: BASOPHILS % (AUTO) 0 % (0-10); EOSINOPHILS # (AUTO) 0.1 10^3/uL (0.0-0.3); EOSINOPHILS % (AUTO) 1 % (0-10); HEMATOCRIT 43 % (40-54); HEMOGLOBIN 15.2 G/DL (13.3-17.7); LYMPHOCYTES # (AUTO) 3.4 X 10^3 (1.0-4.0); LYMPHOCYTES % (AUTO) 23 % (12-44); MEAN CORPUSCULAR HEMOGLOBIN 32 PG (25-34); MEAN CORPUSCULAR HGB CONC 35 G/DL (32-36); MEAN CORPUSCULAR VOLUME 90 FL (80-99); MEAN PLATELET VOLUME 10.3 FL (7.4-10.4); MONOCYTES # (AUTO) 1.7 X 10^3 (0.0-1.0); MONOCYTES % (AUTO) 11 % (0-12); NEUTROPHILS # (AUTO) 9.9 X 10^3 (1.8-7.8); NEUTROPHILS % (AUTO) 65 % (42-75); PLATELET COUNT 147 10^3/uL (130-400); WHITE BLOOD COUNT 15.1 10^3/uL (4.3-11.0)
[2018-10-13 12:52] LABS: ALANINE AMINOTRANSFERASE 28 U/L (0-55); ALBUMIN 4.4 GM/DL (3.2-4.5); ALKALINE PHOSPHATASE 91 U/L (40-136); AMYLASE 37 U/L (25-125); BILIRUBIN,TOTAL 0.6 MG/DL (0.1-1.0); BUN/CREATININE RATIO 15; CALCIUM 9.3 MG/DL (8.5-10.1); CARBON DIOXIDE 21 MMOL/L (21-32); CHLORIDE 104 MMOL/L (98-107); CREATININE SERUM 0.89 MG/DL (0.60-1.30); GFR ESTIMATED > 60; GLUCOSE 116 MG/DL (70-105); LIPASE 271 U/L (8-78); POTASSIUM 3.8 MMOL/L (3.6-5.0); SODIUM 139 MMOL/L (135-145); TOTAL PROTEIN 7.5 GM/DL (6.4-8.2)
[2018-10-13 12:55] LABS: BAND NEUTROPHILS 2 %; LYMPHOCYTES % (MANUAL) 19 %; MONOCYTES % (MANUAL) 7 %; NEUTROPHILS % (MANUAL) 72 %
[2018-10-13 12:56] LABS: RBC MORPH NORMAL
--- NOTE | 2018-10-13 12:56 | Diagnostic Imaging Report ---
INDICATION: Chest pain COMPARISON: 11/21/2006 Single view chest demonstrates stable slight cardiac enlargement. Lungs are clear. There is no pneumothorax. Osseous structures normal. IMPRESSION: Stable cardiac enlargement without pulmonary edema or infiltrate. Dictated by: Dictated on workstation # [id number]
[2018-10-13 13:01] LABS: BILIRUBIN,URINE NEGATIVE (NEGATIVE); CLARITY,URINE CLEAR; COLOR,URINE YELLOW; GLUCOSE, URINE (UA) NEGATIVE (NEGATIVE); KETONES,URINE NEGATIVE (NEGATIVE); LEUKOCYTE ESTERASE ,URINE NEGATIVE (NEGATIVE); NITRITE,URINE NEGATIVE (NEGATIVE); PH,URINE 5 (5-9); PROTEIN,URINE NEGATIVE (NEGATIVE); UROBILINOGEN,URINE NORMAL (NORMAL)
[2018-10-13 13:13] LABS: BACTERIA,URINE NEGATIVE /HPF
[2018-10-13] MEDS ORDERED: fentaNYL INJECTION 100 MCG/2 ML AMP IVP ONE (13:30)
[2018-10-13] MEDS ORDERED: NS 250 ML (IVPB) BAG IV ONE (14:00)
[2018-10-13] MEDS ORDERED: IOHEXOL 350 MG/ML 100 ML (OMNIPAQUE 350) VIAL IV ONE (14:00)
[2018-10-13] MEDS ORDERED: HOLD METFORMIN - RECEIVED CONTRAST 20 ML VIAL IV SCH (14:00)
--- NOTE | 2018-10-13 14:43 | Diagnostic Imaging Report ---
PROCEDURE: CT abdomen and pelvis without contrast. TECHNIQUE: Multiple contiguous axial images were obtained through the abdomen and pelvis without the use of intravenous contrast. Auto Exposure Controls were utilized during the CT exam to meet ALARA standards for radiation dose reduction. INDICATION: Chest and abdominal pain. COMPARISON: None. FINDINGS: Lung bases are clear. There is chronic granulomatous disease in the left infrahilar region. There is mild fatty infiltration of the liver. Otherwise, the liver, gallbladder, spleen, pancreas, adrenal glands, kidneys, vascular structures and small bowel are normal. There is moderate inflammatory change in the right lower quadrant with thickening of the appendix measuring up to 9 mm. There is no abscess, free air or free fluid. Distal ureters and urinary bladder normal. There is no prostate enlargement. Course and caliber of the colon is unremarkable. No free air is seen. There is no lymphadenopathy. Osseous structures normal. IMPRESSION: 1. Acute appendicitis without evidence of abscess, free air or free fluid. 2. Fatty liver. 3. No bowel obstruction identified. Dictated by: Dictated on workstation # [id number]
--- NOTE | 2018-10-13 15:06 | ED Abdominal Pain ---
General Chief Complaint: Abdominal/GI Problems Stated Complaint: ABD PAIN, PAIN SPREADS THROUGHOUT BODY Nursing Triage Note: PT AMB TO RM 5 WITH COMPLAINT OF ABD PAIN THAT RADIATES TO CHEST, BACK, NECK, ARMS AND LEGS. Sepsis Screen: No Definite Risk Source of Information: Patient Exam Limitations: No Limitations History of Present Illness Date Seen by Provider: October 13, 2018 Time Seen by Provider: 12:10 Initial Comments 48-year-old male who presents to the emergency room with complaints of mid epigastric abdominal pain that radiates into his chest and back and throughout his lower extremities. He reports that he had abdominal pain and diarrhea yesterday that has progressively gotten worse throughout the day. He did eat 2 scoops of possible child this morning around 0930. Denies fevers. Timing/Duration: 1-2 Days Associated Symptoms: Chest Pain, Nausea/Vomiting Allergies and Home Medications Allergies Coded Allergies: Penicillins (Verified Allergy, Unknown, 09/06/17) codeine (Verified Allergy, Unknown, 09/06/17) Uncoded Allergies: ALL ANTI DEPRESSANT (Allergy, Unknown, 09/06/17) Home Medications No Active Prescriptions or Reported Meds Patient Home Medication List Home Medication List Reviewed: Yes Review of Systems Review of Systems Constitutional: see HPI; No chills, No fever Cardiovascular: See HPI, Chest Pain Gastrointestinal: See HPI, Abdominal Pain Musculoskeletal: see HPI, joint pain (lower extremity pain) All Other Systems Reviewed Negative Unless Noted: Yes Past Hdhholt-Bxpwix-Byyayc Hx Past Med/Social Hx: Reviewed Nursing Past Med/Soc Hx Patient Social History Alcohol Use: Occasionally Uses Recreational Drug Use: No Smoking Status: Former Smoker Recent Foreign Travel: No Contact w/Someone Who Travel: No Recent Infectious Disease Expo: No Immunizations Up To Date Tetanus Booster (TDap): Unknown PED Vaccines UTD: Yes Past Medical History Surgeries: Yes Adenoidectomy, Tonsillectomy Respiratory: No Cardiac: Yes Hypertension Neurological: No Gastrointestinal: No Musculoskeletal: No Endocrine: No Psychosocial: Yes Anxiety, Depression Integumentary: No Family Medical History Reviewed Nursing Family Hx Physical Exam Vital Signs Vital Signs - First Documented 10/13/18 12:08 Temp 98.0 Pulse 86 Resp 12 B/P (MAP) 138/93 (108) Pulse Ox 95 O2 Delivery Room Air Capillary Refill : Less Than 3 Seconds Height/Weight/BMI Height: 5'7.00" Weight: 260lbs. oz. 117.430836qg; BMI Method:Stated General Appearance: WD/WN, no apparent distress Respiratory: chest non-tender, lungs clear, normal breath sounds, no respir atory distress, no accessory muscle use Cardiovascular: normal peripheral pulses, regular rate, rhythm, no edema, no gallop, no JVD, no murmur Gastrointestinal: normal bowel sounds, soft, no organomegaly, no pulsatile mass, tenderness (right lower quadrant tenderness) Extremities: normal capillary refill Neurologic/Psychiatric: alert, normal mood/affect, oriented x 3 Skin: normal color, warm/dry Progress/Results/Core Measures Results/Orders Lab Results Laboratory Tests Test 10/13/18 12:22 10/13/18 12:54 Range/Units White Blood Count 15.1 H 4.3-11.0 10^3/uL Red Blood Count 4.78 4.35-5.85 10^6/uL Hemoglobin 15.2 13.3-17.7 G/DL Hematocrit 43 40-54 % Mean Corpuscular Volume 90 80-99 FL Mean Corpuscular Hemoglobin 32 25-34 PG Mean Corpuscular Hemoglobin Concent 35 32-36 G/DL Red Cell Distribution Width 13.0 10.0-14.5 % Platelet Count 147 130-400 10^3/uL Mean Platelet Volume 10.3 7.4-10.4 FL Neutrophils (%) (Auto) 65 42-75 % Lymphocytes (%) (Auto) 23 12-44 % Monocytes (%) (Auto) 11 0-12 % Eosinophils (%) (Auto) 1 0-10 % Basophils (%) (Auto) 0 0-10 % Neutrophils # (Auto) 9.9 H 1.8-7.8 X 10^3 Lymphocytes # (Auto) 3.4 1.0-4.0 X 10^3 Monocytes # (Auto) 1.7 H 0.0-1.0 X 10^3 Eosinophils # (Auto) 0.1 0.0-0.3 10^3/uL Basophils # (Auto) 0.0 0.0-0.1 10^3/uL Neutrophils % (Manual) 72 % Lymphocytes % (Manual) 19 % Monocytes % (Manual) 7 % Band Neutrophils 2 % Blood Morphology Comment NORMAL Sodium Level 139 135-145 MMOL/L Potassium Level 3.8 3.6-5.0 MMOL/L Chloride Level 104 98-107 MMOL/L Carbon Dioxide Level 21 21-32 MMOL/L Anion Gap 14 5-14 MMOL/L Blood Urea Nitrogen 13 7-18 MG/DL Creatinine 0.89 0.60-1.30 MG/DL Estimat Glomerular Filtration Rate > 60 BUN/Creatinine Ratio 15 Glucose Level 116 H 70-105 MG/DL Calcium Level 9.3 8.5-10.1 MG/DL Corrected Calcium 9.0 8.5-10.1 MG/DL Total Bilirubin 0.6 0.1-1.0 MG/DL Aspartate Amino Transf (AST/SGOT) 24 5-34 U/L Alanine Aminotransferase (ALT/SGPT) 28 0-55 U/L Alkaline Phosphatase 91 40-136 U/L Troponin I < 0.028 <0.028 NG/ML Total Protein 7.5 6.4-8.2 GM/DL Albumin 4.4 3.2-4.5 GM/DL Amylase Level 37 25-125 U/L Lipase 271 H 8-78 U/L Urine Color YELLOW Urine Clarity CLEAR Urine pH 5 5-9 Urine Specific Cameron 1.010 L 1.016-1.022 Urine Protein NEGATIVE NEGATIVE Urine Glucose (UA) NEGATIVE NEGATIVE Urine Ketones NEGATIVE NEGATIVE Urine Nitrite NEGATIVE NEGATIVE Urine Bilirubin NEGATIVE NEGATIVE Urine Urobilinogen NORMAL NORMAL MG/DL Urine Leukocyte Esterase NEGATIVE NEGATIVE Urine RBC (Auto) NEGATIVE NEGATIVE Urine RBC NONE /HPF Urine WBC NONE /HPF Urine Squamous Epithelial Cells NONE /HPF Urine Crystals NONE /LPF Urine Bacteria NEGATIVE /HPF Urine Casts NONE /LPF Urine Mucus NEGATIVE /LPF Urine Culture Indicated NO My Orders Orders - JAZMINE LUGO Aspirin Chewable Tablet (Baby Aspirin Ch (10/13/18 12:30) Troponin I (10/13/18 12:19) Chest 1 View, Ap/Pa Only (10/13/18 12:19) Ekg Tracing (10/13/18 12:19) Ed Iv/Invasive Line Start (10/13/18 12:19) Monitor-Rhythm Ecg Trace Only (10/13/18 12:19) Comprehensive Metabolic Panel (10/13/18 12:19) Lipase (10/13/18 12:19) Amylase (10/13/18 12:19) Ua Culture If Indicated (10/13/18 12:19) Cbc With Automated Diff (10/13/18 12:19) Ondansetron Injection (Zofran Injectio (10/13/18 12:30) Ns Iv 1000 Ml (Sodium Chloride 0.9%) (10/13/18 12:21) Manual Differential (10/13/18 12:22) Fentanyl Injection (Sublimaze Injection (10/13/18 13:30) Iohexol Injection (Omnipaque 350 Mg/Ml 1 (10/13/18 14:00) Ns (Ivpb) (Sodium Chloride 0.9%) (10/13/18 14:00) Received Contrast (Hold Metformin- Contr (10/13/18 14:00) Ct Abdomen/Pelvis Wo (10/13/18 13:29) Medications Given in ED Current Medications Medications Dose Ordered Sig/Maryana Route Start Time Stop Time Status Last Admin Dose Admin Fentanyl Citrate 50 mcg ONCE ONCE IVP 10/13/18 13:30 10/13/18 13:31 DC 10/13/18 14:34 50 MCG Vital Signs/I&O 10/13/18 12:08 Temp 98.0 Pulse 86 Resp 12 B/P (MAP) 138/93 (108) Pulse Ox 95 O2 Delivery Room Air Blood Pressure Mean: 108 Progress Progress Note : Time: 15:00 Progress Note I have seen and evaluated the patient. His pain has improved after medication. I have informed him of his imaging studies and laboratory findings. I have d iscussed the case with Dr. Javed and he wishes to take the patient to OR at this time. Patient agrees with plan of care. Diagnostic Imaging Diagonstic Imaging: CT Plain Films/CT/US/NM/MRI: abdomen, pelvis Comments NAME: FRANCISCA STRONG [facility] REC#: [id number] PT STATUS: REG ER : 1970 PHYSICIAN: JAZMINE LUGO ADMIT DATE: 10/13/18/ER Signed Date of Exam: 10/13/18 CT ABDOMEN/PELVIS WO PROCEDURE: CT abdomen and pelvis without contrast. TECHNIQUE: Multiple contiguous axial images were obtained through the abdomen and pelvis without the use of intravenous contrast. Auto Exposure Controls were utilized during the CT exam to meet ALARA standards for radiation dose reduction. INDICATION: Chest and abdominal pain. COMPARISON: None. FINDINGS: Lung bases are clear. There is chronic granulomatous disease in the left infrahilar region. There is mild fatty infiltration of the liver. Otherwise, the liver, gallbladder, spleen, pancreas, adrenal glands, kidneys, vascular structures and small bowel are normal. There is moderate inflammatory change in the right lower quadrant with thickening of the appendix measuring up to 9 mm. There is no abscess, free air or free fluid. Distal ureters and urinary bladder normal. There is no prostate enlargement. Course and caliber of the colon is unremarkable. No free air is seen. There is no lymphadenopathy. Osseous structures normal. IMPRESSION: 1. Acute appendicitis without evidence of abscess, free air or free fluid. 2. Fatty liver. 3. No bowel obstruction identified. Dictated by: Dictated on workstation # [id number] Dict: 10/13/18 1431 Trans: 10/13/18 1453 Interpreted by: MICHAEL ODOM Electronically signed by: MICHAEL ODOM 10/13/18 1453 Reviewed: Reviewed by Sc Departure Communication (Admissions) Time/Spoke to Admitting Phy: 15:00 Dr. Javed Impression Primary Impression: Appendicitis Disposition: ADMITTED INPATIENT Condition: Stable Admissions Decision to Admit Reason: Admit from ER (General) Decision to Admit/Date: October 13, 2018 Time/Decision to Admit Time: 15:00 Departure-Patient Inst. Referrals: [facility] (PCP/Family) Primary Care Physician Scripts No Active Prescriptions or Reported [place] JAZMINE LUGO October 13, 2018 15:06
--- OUTSIDE RECORDS SUMMARY | 2018-10-13 15:19 | XMS REPORT | Continuity of Care Document ---
Author Organization Unknown Address Unknown Allergies There is no data. Medications There is no data. Problems There is no data. Procedures There is no data. Results Test Result Range RA (RHEUMATOID) FACTOR - 10/18/17 11:01 RHEUMATOID FACTOR <14 IU/mL <14 Encounters ACCT No. Visit Date/Time Discharge Status Pt. Type Provider Facility Loc./Unit Complaint [id number] 09/12/2018 18:05:00 09/12/2018 23:59:59 [facility] Outpatient CT [place] APRN [facility] [id number] 10/18/2017 11:00:00 Document Registration
[2018-10-13] MEDS ORDERED: BUP/EPI 0.5% 1:200,000 (SENSORCAINE) 30 ML VIAL ONE (15:22)
[2018-10-13] MEDS ORDERED: LIDOCAINE 1% INJ 20 ML 20 ML VIAL ONE (15:22)
[2018-10-13] MEDS ORDERED: ceFAZolin 2 GM IV Premixed 50 ML IV ONE (15:45)
[2018-10-13] MEDS ORDERED: metroNIDAZOLE 500MG/100ML IVPB IV ONE (15:45)
[2018-10-13] MEDS ORDERED: LACTATED RINGERS 1,000 ML IV PRN (15:48)
[2018-10-13] MEDS ORDERED: metroNIDAZOLE 500MG/100ML IVPB 100 ML ONE (15:50)
[2018-10-13] MEDS ORDERED: ceFAZolin INJECTION 2,000 MG ONE (15:50)
[2018-10-13] MEDS ORDERED: SEVOFLURANE (ULTANE) 15 ML INHAL SOLN ONE ×4 (15:52→18:06)
[2018-10-13] MEDS ORDERED: SUCCINYLCHOLINE INJ 100 MG/5 ML SYR ONE (15:52)
[2018-10-13] MEDS ORDERED: DEXAMETHASONE 10 MG/ML (DECADRON) 1 ML VIAL ONE (15:52)
[2018-10-13] MEDS ORDERED: ROCURONIUM 10 MG/ML 5 ML SYRINGE IV ONE (15:52)
[2018-10-13] MEDS ORDERED: proPOfol 200 MG/20 ML (DIPRIVAN) VIAL IV ONE (15:52)
[2018-10-13] MEDS ORDERED: ONDANSETRON 4 MG/2 ML (SDV) Z0FRAN ONE ×2 (15:52→15:54)
[2018-10-13] MEDS ORDERED: LIDOCAINE PF 2% 5 ML (XYLOCAINE) VIAL ONE (15:52)
--- NOTE | 2018-10-13 15:52 | History & Physical-Surgical ---
History of Present Illness History of Present Illness Reason for visit/HPI CC: abdominal pain. seen and evaluated in ED. Patient is a 48 year old male with pain in rlq that had started yesterday that wasn't that significant but then woke up this morning and was having more significant pain. Movement makes worse. Nothing really makes better. Montz achy and moves a little up and down around the right lower quadrant. Had some nausea today, no emesis. Denies fever sweats chills shortness of breath or yesterday. Diarrhea yesterday. Ct scan reviewed with changes of acute appendicitis and umbilical hernia. Date of Admission T Date Seen by a Provider: October 13, 2018 Time Seen by a Provider: 15:53 I consulted on this patient on 10/13/18 15:45 Attending Physician Garrett Javed DO Admitting Physician [place]/Counts Include [facility] At [facility] Consult Allergies and Home Medications Allergies Coded Allergies: Penicillins (Verified Allergy, Unknown, 09/06/17) codeine (Verified Allergy, Unknown, 09/06/17) Uncoded Allergies: ALL ANTI DEPRESSANT (Allergy, Unknown, 09/06/17) Home Medications No Active Prescriptions or Reported Meds Patient Home Medication List Home Medication List Reviewed: Yes Past Pnahcvm-Ledlrv-Bhhsns Hx Patient Social History Alcohol Use: Occasionally Uses Recreational Drug Use: No Smoking Status: Former Smoker Recent Foreign Travel: No Contact w/Someone Who Travel: No Recent Infectious Disease Expo: No Immunizations Up To Date Tetanus Booster (TDap): Unknown PED Vaccines UTD: Yes Surgeries History of Surgeries: Yes Surgeries: Adenoidectomy, Tonsillectomy Respiratory History of Respiratory Disorde: No Cardiovascular History of Cardiac Disorders: Yes Cardiac Disorders: Hypertension Neurological History of Neurological Disord: No Gastrointestinal History of Gastrointestinal Di: No Musculoskeletal History of Musculoskeletal Dis: No Endocrine History of Endocrine Disorders: No Psychosocial History of Psychiatric Problem: Yes Behavioral Health Disorders: Anxiety, Depression Integumentary History of Skin or Integumenta: No Family Medical History Significant Family History: No Pertinent Family Hx Review of Systems Constitutional: no symptoms reported EENTM: no symptoms reported Respiratory: no symptoms reported Cardiovascular: no symptoms reported Gastrointestinal: see HPI Genitourinary: no symptoms reported Musculoskeletal: no symptoms reported Skin: no symptoms reported Psychiatric/Neurological: No Symptoms Reported Physical Exam Vital Signs Vital Signs - First Documented 10/13/18 12:08 Temp 98.0 Pulse 86 Resp 12 B/P (MAP) 138/93 (108) Pulse Ox 95 O2 Delivery Room Air Capillary Refill : Less Than 3 Seconds Height, Weight, BMI Height: 5'7.00" Weight: 260lbs. oz. 117.543348iy; BMI Method:Stated General Appearance: No Apparent Distress, WD/WN HEENT: PERRL/EOMI, Normal ENT Inspection, Pharynx Normal Neck: Normal Inspection, Non Tender Respiratory: Chest Non Tender, No Accessory Muscle Use, No Respiratory Distress Cardiovascular: Regular Rate, Rhythm Gastrointestinal: Soft; No Distended, No Guarding; Hernia (umbilical), Tenderness (right lower quadrant) Back: No CVA Tenderness Extremity: Normal Inspection, Normal Range of Motion, Non Tender, No Calf Tenderness Neurologic/Psychiatric: Alert, Oriented x3, No Motor/Sensory Deficits, Normal Mood/Affect, in house counsel II-XII Norm as Tested Skin: Normal Color, Warm/Dry Lymphatic: No Adenopathy Data Review Labs Laboratory Tests 10/13/18 12:22: White Blood Count 15.1H, Red Blood Count 4.78, Hemoglobin 15.2, Hematocrit 43, Mean Corpuscular Volume 90, Mean Corpuscular Hemoglobin 32, Mean Corpuscular Hemoglobin Concent 35, Red Cell Distribution Width 13.0, Platelet Count 147, Mean Platelet Volume 10.3, Neutrophils (%) (Auto) 65, Lymphocytes (%) (Auto) 23, Monocytes (%) (Auto) 11, Eosinophils (%) (Auto) 1, Basophils (%) (Auto) 0, Neutrophils # (Auto) 9.9H, Lymphocytes # (Auto) 3.4, Monocytes # (Auto) 1.7H, Eosinophils # (Auto) 0.1, Basophils # (Auto) 0.0, Neutrophils % (Manual) 72, Lymphocytes % (Manual) 19, Monocytes % (Manual) 7, Band Neutrophils 2, Blood Morphology Comment NORMAL, Sodium Level 139, Potassium Level 3.8, Chloride Level 104, Carbon Dioxide Level 21, Anion Gap 14, Blood Urea Nitrogen 13, Creatinine 0.89, Estimat Glomerular Filtration Rate > 60, BUN/Creatinine Ratio 15, Glucose Level 116H, Calcium Level 9.3, Corrected Calcium 9.0, Total Bilirubin 0.6, Aspartate Amino Transf (AST/SGOT) 24, Alanine Aminotransferase (ALT/SGPT) 28, Alkaline Phosphatase 91, Troponin I < 0.028, Total Protein 7.5, Albumin 4.4, Amylase Level 37, Lipase 271H 10/13/18 12:54: Urine Color YELLOW, Urine Clarity CLEAR, Urine pH 5, Urine Specific [place] 1.010L, Urine Protein NEGATIVE, Urine Glucose (UA) NEGATIVE, Urine Ketones NEGATIVE, Urine Nitrite NEGATIVE, Urine Bilirubin NEGATIVE, Urine Urobilinogen NORMAL, Urine Leukocyte Esterase NEGATIVE, Urine RBC (Auto) NEGATIVE, Urine RBC NONE, Urine WBC NONE, Urine Squamous Epithelial Cells NONE, Urine Crystals NONE, Urine Bacteria NEGATIVE, Urine Casts NONE, Urine Mucus NEGATIVE, Urine Culture Indicated NO Assessment/Plan Assessment/Plan Admission Diagonsis right lower quadrant abdominal pain acute appendicitis umbilical hernia Admission Status: Observation Assessment/Plan right lower quadrant abdominal pain acute appendicitis umbilical hernia discussed risks and benefits of laparoscopic appendectomy all other indicated procedures and also discussed possibly primary closure of umbilical hernia he understands and wishes to proceed. npo iv hydration patient states PCN allergy only specific to PCN and can take others like amoxicillin and others will plan on giving ancef/flagyl to or GARRETT JAVED DO October 13, 2018 15:52
[2018-10-13] MEDS ORDERED: fentaNYL INJECTION 100 MCG/2 ML AMP ONE (15:53)
[2018-10-13] MEDS ORDERED: morphine INJ 10 MG/ML 1ML (SYR OR VIAL) ONE (15:53)
[2018-10-13] MEDS ORDERED: PROMETHAZINE INJ 25 MG/ML (PHENERGAN) AMP ONE (15:54)
[2018-10-13] MEDS ORDERED: HYDROmorphone 2 MG/ML VIAL (DILAUDID) ONE (15:54)
[2018-10-13] MEDS ORDERED: MIDAZOLAM 2 MG/2 ML (VERSED) VIAL ONE (15:54)
[2018-10-13] MEDS ORDERED: morphine INJ 10 MG/ML 1ML (SYR OR VIAL) IVP ONE (16:00)
[2018-10-13] MEDS ORDERED: HYDROmorphone 2 MG/ML VIAL (DILAUDID) IV ONE (16:00)
[2018-10-13] MEDS ORDERED: MEPERIDINE (DEMEROL) INJ 50 MG/ML IVP ONE (16:00)
[2018-10-13] MEDS: LACTATED RINGERS 1,000 ML IV SCH ×2 (16:37→17:50)
--- NOTE | 2018-10-13 18:21 | Progress Note-Post Operative ---
Post-Operative Progess Note Surgeon (s)/Airplane Inspector (s) Surgeon GARRETT HE DO Airplane Inspector: na Pre-Operative Diagnosis appendicitis, umbilical hernia Post-Operative Diagnosis appendicitis, incarcerated umbilical hernia (omentum) Procedure & Operative Findings Date of Procedure 10/13/18 Procedure Performed/Findings lap appy primary repair of incarcerated umbilical hernia Anesthesia Type gen Estimated Blood Loss Estimated blood loss (mL): min Specimens/Packing Specimens Removed appendix GARRETT HE DO October 13, 2018 18:21
[2018-10-13] MEDS ORDERED: morphine INJ 10 MG/ML 1ML (SYR OR VIAL) IV PRN (18:30)
[2018-10-13] MEDS: ONDANSETRON 4 MG/2 ML (SDV) Z0FRAN IVP PRN ×2 (18:43→19:00)
[2018-10-13] MEDS: NS IV 1000 ML 1,000 ML IV SCH (19:00)
--- NOTE | 2018-10-13 20:40 | OPERATIVE REPORT ---
DATE OF SERVICE: 10/13/2018 PREOPERATIVE DIAGNOSES: Appendicitis, umbilical hernia. POSTOPERATIVE DIAGNOSES: Appendicitis and incarcerated umbilical hernia. PROCEDURE: Laparoscopic appendectomy and primary repair of incarcerated umbilical hernia. SURGEON: Garrett Javed DO ANESTHESIA: General. ESTIMATED BLOOD LOSS: Minimal. COMPLICATIONS: None. INDICATIONS: The patient is a 48-year-old male with right lower quadrant abdominal pain with CT scan and physical exam findings consistent with appendicitis. He also has umbilical hernia that caused him discomfort, it is tender and nonreducible. He was explained risks and benefits of procedure and wished to proceed with procedure. Consent was signed on the chart. DESCRIPTION OF PROCEDURE: The patient was taken to the operating suite, prepped and draped in sterile fashion. Timeout was performed. A 5 mm incision was made superior to the umbilicus. Kochers were used to dissect down the fascia, grasped and elevated. A Veress needle was inserted in the abdomen. Pneumoperitoneum was achieved. Under direct visualization of the laparoscope, a 5 mm trocar was then placed and then under direct visualization of the laparoscope, a 5 mm trocar was placed in suprapubic region and a 12 mm trocar was placed in left lower quadrant. The appendix was located, it was significant inflamed and adherent to the right gutter partially in a retrocecal position. Blunt dissection was used to and elevate the appendix and the LigaSure was then inserted to go across the mesoappendix as the appendix was able to be mobilized. The [place] was used to dissect around the base of the appendix and then the rest of the mesoappendix was removed using LigaSure. Endo-CLAUDE 2.5 stapler was then fired across the base of the appendix and was placed in an Endobag and removed through the 12 mm trocar site. The abdomen was then irrigated with copious amounts of irrigation. Hemostasis was achieved. At this point, the umbilical hernia was taken care of, the piece of omentum was incarcerated through this area. This was then removed and the defect was visualized. Using Kevin-Miguel and 0 Vicryl the defect was closed. The 12 mm trocar site was then closed using 0 Vicryl with an Endoclose. The abdomen was then desufflated, the trocars were removed. The skin was then closed using 4-0 Vicryl in a subcuticular fashion. The skin was washed and dried and Skin Affix was placed over the incisions. A tonsil ball was placed within the umbilicus and a Tegaderm was placed over it and then suctioned down. The patient tolerated procedure well without any complications, taken to recovery room in stable condition. Job ID: [id number] DocumentID: [id number] Dictated Date: 10/13/2018 18:30:33 Twill Cutter Date: 10/13/2018 20:40:00 Dictated By: GARRETT JAVED DO
[2018-10-13] MEDS: HYDROcodone/APAP 5 MG/325 MG (LORTAB) TAB PO PRN (21:50)
[2018-10-13] MEDS: metroNIDAZOLE 500MG/100ML IVPB IV SCH (21:51)
[2018-10-13] MEDS: ceFAZolin INJECTION 2,000 MG in WATER (STERILE) FOR INJECTION 10 ML IV SCH (23:02)
[2018-10-14 00:20] VITALS: BP 134/80
[2018-10-14] MEDS: LACTATED RINGERS 1,000 ML IV SCH (04:08)
[2018-10-14] MEDS: HYDROcodone/APAP 5 MG/325 MG (LORTAB) TAB PO PRN ×2 (04:09→12:25)
[2018-10-14 04:24] VITALS: BP 122/75
[2018-10-14] MEDS: ceFAZolin INJECTION 2,000 MG in WATER (STERILE) FOR INJECTION 10 ML IV SCH (06:11)
[2018-10-14] MEDS: metroNIDAZOLE 500MG/100ML IVPB IV SCH (06:12)
[2018-10-14] MEDS: NS IV 1000 ML 1,000 ML IV SCH ×2 (06:17→10:22)
--- NOTE | 2018-10-14 08:28 | Anesthesia-General Post-Op ---
General Patient Condition Mental Status/LOC: Same as Preop Cardiovascular: Satisfactory Nausea/Vomiting: Absent Respiratory: Satisfactory Pain: Controlled Complications: Absent Post Op Complications Complications None Follow Up Care/Instructions Patient Instructions None needed. Anesthesia/Patient Condition Patient Condition Patient is doing well, no complaints, stable vital signs, no apparent adverse anesthesia problems. No complications reported per nursing. D/C home per [facility] Criteria: Yes LA NENA CASTRO CRNA October 14, 2018 08:28
[2018-10-14 08:38] VITALS: BP 135/74
[2018-10-14] MEDS ORDERED: DOCU-143 PO (11:42)
[2018-10-14] MEDS ORDERED: ACHD5005 PO (11:42)
--- NOTE | 2018-10-14 11:46 | Discharge Inst-Simple/Standard ---
Discharge Inst-Standard Discharge Medications New, Converted or Re-Newed RX: RX on Chart Patient Instructions/Follow Up Plan of Care/Instructions/FU: 2-3 weeks Tello Activity as Tolerated: No Discharge Diet: Regular Diet Other Inst to Patient Follow up Appt: Make appointment for 2-3 week. Instructions: No lifting greater than 10 pounds. No strenuous activity. May shower in 24 hours, no tub bath or soaking. Use incentive spirometer at home as directed. No Smoking Skin/Wound Care: May remove bandages in 24 hours. You have sepcial glue over incisions on they will fall off on their own. Symptoms to Report: Appetite Changes, Extremity Discoloration, Numbness/Tingling, Swelling Increased, Bleeding Excessive, Eyesight Changes, Pain Increased, Urine Color Change, Constipation(Persistent), Fever over 101 degree F, Pain/Pressure in chest, Urinating Difficulty, Cough Up/Vomit Blood, Heart Beat Irreg/Pounding, Pain/Pressure in jaw, Vaginal Bleeding Increase, Cramps in feet or legs, Lightheadedness, Pain/Pressure in shoulder, Diarrhea(Persistent), Memory Changes Suddenly, Questions/Concerns, Weight gain consecutive days, Dizziness/Fainting, Nausea/Vomiting, Shortness of Breath, Weight gain over 2 pounds If questions or concerns contact your physician Or seek help at emergency department. GARRETT HE DO October 14, 2018 11:46
[2018-10-14 12:00] VITALS: BP 131/69
--- NOTE | 2018-10-14 13:22 | Progress Note ---
Subjective Date Seen by a Provider: October 14, 2018 Time Seen by a Provider: 11:46 Subjective/Events-last exam deeptit doing well. pain controlled. tolerating diet. denies n/v fever sweats chills shortness of breath or chest pain. Objective Exam Vital Signs Date Time Temp Pulse Resp B/P (MAP) Pulse Ox O2 Delivery O2 Flow Rate FiO2 10/14/18 08:38 98.9 102 20 135/74 (94) 96 Room Air 0.00 10/14/18 04:24 97.2 75 20 122/75 (91) 95 Room Air 10/14/18 00:20 98.0 76 18 134/80 (98) 95 Room Air 10/13/18 21:44 Room Air 10/13/18 20:30 Nasal Cannula 10/13/18 20:00 97.1 77 18 143/89 (107) 94 Room Air 10/13/18 19:43 97.1 77 18 143/89 94 Room Air 10/13/18 19:10 98.2 14 96 Room Air 10/13/18 19:00 14 96 Room Air 10/13/18 18:50 14 99 Room Air 10/13/18 18:40 16 100 OxyMask 4 10/13/18 18:30 14 100 OxyMask 4 10/13/18 18:20 16 98 OxyMask 10 10/13/18 18:15 98.6 16 98 OxyMask 10 10/13/18 15:46 76 12 127/92 (104) 95 Room Air I & O 10/14/18 07:00 Intake Total 2850 ml Output Total 2500 ml Balance 350 ml Capillary Refill : Less Than 3 SecondsLess Than 3 Seconds General Appearance: No Apparent Distress, WD/WN HEENT: PERRL/EOMI, Normal ENT Inspection, Pharynx Normal Neck: Normal Inspection, Non Tender Respiratory: Chest Non Tender, No Accessory Muscle Use, No Respiratory Distress Cardiovascular: Regular Rate, Rhythm Gastrointestinal: normal bowel sounds, soft, no organomegaly, no pulsatile mass, tenderness (incisional) Extremity: Normal Inspection, Normal Range of Motion, Non Tender, No Calf Tenderness Neurologic/Psychiatric: Alert, Oriented x3, No Motor/Sensory Deficits, Normal Mood/Affect, test architect II-XII Norm as Tested Skin: Normal Color, Warm/Dry Lymphatic: No Adenopathy Assessment/Plan Assessment/Plan Assessment/Plan right lower quadrant abdominal pain acute appendicitis umbilical hernia s/p lap appy, primary repair incarcerated umbilical hernia doing well oral pain control diet as tolerates dc home continue IS Final Diagnosis right lower quadrant abdominal pain acute appendicitis umbilical hernia s/p lap appendectomy, primary repair incarcerated umbilical hernia Clinical Quality Measures DVT/VTE Risk/Contraindication: Risk Factor Score Per Nursin RFS Level Per Nursing on Admit: 4+=Very High GARRETT HE DO October 14, 2018 13:22
== END 2018-10-14 13:30 | disposition home or self-care (01) ==
LOC: EDUNIT# 11:58 → ER 12:00 → SDC 15:13 → 4TH 19:10 → SDC 10-14 13:30
PROVIDERS: ATTEND Surgery
DX: K35.80 Unspecified acute appendicitis (principal); K42.0 Umbilical hernia with obstruction, without gangrene; Z88.0 Allergy status to penicillin; Z88.5 Allergy status to narcotic agent; Z87.891 Personal history of nicotine dependence; I10 Essential (primary) hypertension; F41.9 Anxiety disorder, unspecified; F32.9 Major depressive disorder, single episode, unspecified; G40.909 Epilepsy, unspecified, not intractable, without status epilepticus; E66.01 Morbid (severe) obesity due to excess calories; Z68.41 Body mass index [BMI] 40.0-44.9, adult
CPT/HCPCS: 36415; 71045; 74176; 80053; 81000; 82150; 83690; 84484; 85007; 85027; 93041; 94664

== ENCOUNTER 2019-06-08 19:46 | Emergency (ER) | payer MEDICAID ==
[~2019-06-08] VITALS: Ht 170 cm; Wt 106.6 kg
[~2019-06-08 19:46] MED LIST: ACHD5005 PO; DOCU-143 PO
[2019-06-08] MEDS ORDERED: IBUPROFEN 800 MG (MOTRIN) TAB PO ONE (20:30)
[2019-06-08] MEDS ORDERED: GUAI200T4 PO (21:06)
--- NOTE | 2019-06-08 21:08 | ED General ---
General Chief Complaint: General Problems/Pain Stated Complaint: FATIGUE/FREQ URINATION/HEADACHE/SORE THROAT Nursing Triage Note: Pt ambulates to Rm 7 with c/o chills/fatigue/congestion and headache x2 days. Pt denies any fever or cough at this time. Nursing Sepsis Screen: No Definite Risk Source of Information: Patient Exam Limitations: No Limitations History of Present Illness Date Seen by Provider: Jun 08, 2019 Time Seen by Provider: 20:30 Initial Comments 48-year-old male who presents to the emergency room with complaints of chills, fatigue, congestion that started 2 days ago. He denies any fever or cough at this time. He has been taking ihuk-xwp-lmkmguf cold cough flu medication that has provided some relief. Timing/Duration: 1-2 Days Associated Systoms: Fever/Chills, Malaise Allergies and Home Medications Allergies Coded Allergies: Penicillins (Verified Allergy, Unknown, 09/06/17) codeine (Verified Allergy, Unknown, 09/06/17) Uncoded Allergies: ALL ANTI DEPRESSANT (Allergy, Unknown, 09/06/17) Home Medications Docusate Sodium 100 Mg Capsule, 100 MG PO BID Prescribed by: GARRETT HE on 10/14/18 1142 Guaifenesin 200 Mg Tablet, 200 MG PO Q6H Prescribed by: JAZMINE LUGO on 06/08/19 2106 Hydrocodone Bit/Acetaminophen 1 Tab Tab, 1-2 TAB PO Q6H PRN for PAIN-MODERATE Prescribed by: GARRETT HE on 10/14/18 1142 Past Dwkfksc-Prxmwa-Syimzp Hx Patient Social History Alcohol Use: Rarely Uses Number of Drinks Today: AA Alcohol Beverage of Choice: Beer Recreational Drug Use: No Smoking Status: Never a Smoker Recent Foreign Travel: No Contact w/Someone Who Travel: No Recent Infectious Disease Expo: No Physical Abuse: No Sexual Abuse: No Mistreated: No Fear: No Immunizations Up To Date Tetanus Booster (TDap): Unknown PED Vaccines UTD: Yes Date of Pneumonia Vaccine: Mar 16, 2007 Seasonal Allergies Seasonal Allergies: Yes Past Medical History Surgeries: Yes Adenoidectomy, Tonsillectomy Respiratory: No Currently Using CPAP: No Cardiac: Yes Hypertension Neurological: Yes (electrocuted 2018) Gastrointestinal: No Musculoskeletal: No Degenerate Disk Disease, Arthritis, Chronic Back Pain Endocrine: No HEENT: Yes (ringing in ears and dizziness) Hearing Impairment: Denies Cancer: No Psychosocial: Yes Anxiety, Depression Integumentary: No Blood Disorders: No Adverse Reaction/Blood Tranf: No Family Medical History No Pertinent Family Hx Physical Exam Vital Signs Vital Signs - First Documented 06/08/19 20:18 Temp 36.9 Pulse 95 Resp 20 B/P (MAP) 154/87 (109) Pulse Ox 98 O2 Delivery Room Air Capillary Refill : Less Than 3 Seconds Height, Weight, BMI Height: 5'7.00" Weight: 266lbs. 8.0oz. [id number]; 36.00 BMI Method:Stated Progress/Results/Core Measures Suspected Sepsis Recent Fever Within 48 Hours: No Infection Criteria Present: None New/Unexplained Altered Menta: No Sepsis Screen: No Definite Risk SIRS Temperature: Pulse: 95 Respiratory Rate: 20 Blood Pressure 154 /87 Mean: 109 Results/Orders Micro Results Microbiology 06/08/19 Influenza Types A,B Antigen (CLEMENT) - Final, Complete My Orders Orders - JAZMINE LUGO Ibuprofen Tablet (Motrin Tablet) (06/08/19 20:30) Influenza A And B Antigens (06/08/19 20:23) Medications Given in ED Current Medications Medications Dose Ordered Sig/Maryana Route Start Time Stop Time Status Last Admin Dose Admin Ibuprofen 800 mg ONCE ONCE PO 06/08/19 20:30 06/08/19 20:31 DC 06/08/19 20:31 800 MG Vital Signs/I&O 06/08/19 20:18 Temp 36.9 Pulse 95 Resp 20 B/P (MAP) 154/87 (109) Pulse Ox 98 O2 Delivery Room Air Capillary Refill : Less Than 3 Seconds Blood Pressure Mean: 109 Departure Impression Primary Impression: Influenza-like illness Disposition: 01 HOME, SELF-CARE Condition: Stable/Unchanged Departure-Patient Inst. Decision time for Depature: 21:04 Referrals: [facility] (PCP/Family) Primary Care Physician Patient Instructions: VIRAL RESP ILLNESS-ADULT Add. Discharge Instructions: He may continue to use xpcf-lrh-bzffstd cold cough flu medications. Tylenol Motrin for pain and fever. Follow-up with her primary care provider within 1 week if no improvement. Return back to the emergency room for worsening symptoms or concerns as needed. All discharge instructions reviewed with patient and/or family. Voiced understanding. Scripts Guaifenesin (Guaifenesin) 200 Mg Tablet 200 MG PO Q6H for Congestion, #20 TAB Prov: JAZMINE LUGO 06/08/19 Work/School Note: Work Release Form Date Seen in the Emergency Department: Jun 08, 2019 Return to Work: Jun 11, 2019 Restrictions: No Restrictions JAZMINE LUGO Jun 08, 2019 21:08
[2019-06-08 21:18] VITALS: BP 154/87
== END 2019-06-08 21:18 | disposition home or self-care (01) ==
LOC: EDUNIT# 19:46 → ER 19:47
DX: J11.1 Influenza due to unidentified influenza virus with other respiratory manifestations (principal); I10 Essential (primary) hypertension; F41.9 Anxiety disorder, unspecified; F32.9 Major depressive disorder, single episode, unspecified; Z88.0 Allergy status to penicillin; Z88.5 Allergy status to narcotic agent; Z90.89 Acquired absence of other organs
CPT/HCPCS: 87804

== ENCOUNTER 2022-07-16 18:37 | Emergency (ER) | payer MEDICAID ==
[~2022-07-16 18:37] MED LIST changes: +GUAI200T4 PO
[2022-07-16 19:00] LABS: BASOPHILS # (AUTO) 0.1 10^3/uL (0.0-0.1); BASOPHILS % (AUTO) 1 % (0-10); EOSINOPHILS # (AUTO) 0.2 10^3/uL (0.0-0.3); EOSINOPHILS % (AUTO) 2 % (0-10); HEMATOCRIT 47 % (40-54); HEMOGLOBIN 16.3 g/dL (13.3-17.7); LYMPHOCYTES # (AUTO) 3.6 10^3/uL (1.0-4.0); LYMPHOCYTES % (AUTO) 38 % (12-44); MEAN CORPUSCULAR HEMOGLOBIN 31 pg (25-34); MEAN CORPUSCULAR HGB CONC 35 g/dL (32-36); MEAN CORPUSCULAR VOLUME 90 fL (80-99); MEAN PLATELET VOLUME 10.2 fL (9.0-12.2); MONOCYTES % (AUTO) 10 % (0-12); NEUTROPHILS # (AUTO) 4.8 10^3/uL (1.8-7.8); NEUTROPHILS % (AUTO) 50 % (42-75); PLATELET COUNT 178 10^3/uL (130-400); WHITE BLOOD COUNT 9.5 10^3/uL (4.3-11.0)
[2022-07-16] MEDS ORDERED: NS IV 500 ML 500 ML IV ONE (19:00)
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
[2022-07-16 19:08] LABS: ALBUMIN 4.2 GM/DL (3.2-4.5)
[2022-07-16 19:09] LABS: CHLORIDE 106 MMOL/L (98-107); POTASSIUM 3.5 MMOL/L (3.6-5.0); SODIUM 141 MMOL/L (135-145)
[2022-07-16 19:10] LABS: CALCIUM 8.7 MG/DL (8.5-10.1)
[2022-07-16 19:11] LABS: GLUCOSE 134 MG/DL (70-105); TOTAL PROTEIN 7.1 GM/DL (6.4-8.2)
[2022-07-16 19:12] LABS: CARBON DIOXIDE 24 MMOL/L (21-32)
[2022-07-16 19:13] LABS: BILIRUBIN,TOTAL 0.4 MG/DL (0.1-1.0)
[2022-07-16 19:14] LABS: ALKALINE PHOSPHATASE 73 U/L (40-136)
[2022-07-16 19:15] LABS: CREATININE SERUM 0.88 MG/DL (0.60-1.30); GFR ESTIMATED 105
[2022-07-16 19:16] LABS: BUN/CREATININE RATIO 13
[2022-07-16 19:17] LABS: ALANINE AMINOTRANSFERASE 26 U/L (0-55)
--- NOTE | 2022-07-16 19:28 | Diagnostic Imaging Report ---
EXAMINATION: Chest 1 view HISTORY: Stroke COMPARISON: 10/13/2018 FINDINGS: Heart size and pulmonary vasculature are normal. The lungs are clear without consolidation, pleural effusion, or pneumothorax. The osseous structures are intact. Stable likely calcified granulomas within the lungs. IMPRESSION: 1. No acute radiographic abnormality in the chest. Dictated by: Dictated on workstation # [id number]
--- NOTE | 2022-07-16 19:33 | Diagnostic Imaging Report ---
EXAMINATION: CT head without contrast. TECHNIQUE: Multiple contiguous axial images were obtained through the brain without the use of intravenous contrast. All CT scans use one or more of the following dose optimizing techniques: automated exposure control, MA and/or KvP adjustment based on patient size and exam type or iterative reconstruction. HISTORY: Altered mental status, left-sided weakness and numbness. COMPARISON: 09/05/2017 FINDINGS: There is chronic encephalomalacia of the right frontal lobe. Ventricles and sulci are otherwise normal. No abnormal attenuation of brain parenchyma is present. No acute intracranial hemorrhage or abnormal extra-axial fluid collections are present. No hyperdense vessel. Surgical changes of the right frontal calvarium. Calvarium is otherwise intact. The mastoid air cells are clear. The visualized paranasal sinuses are clear. The orbits are normal. IMPRESSION: 1. No acute intracranial abnormality. 2. Chronic right frontal lobe encephalomalacia. Results communicated to Dr. Keen by Dr. Melchor Shore at 7:12 PM on 07/16/2022. Dictated by: Dictated on workstation # [id number]
[2022-07-16 19:49] LABS: FIBRIN DEGRADATION PRODUCTS 0.38 UG/ML (0.00-0.49); PROTHROMBIN TIME PATIENT 13.3 SEC (12.2-14.7)
[2022-07-16] MEDS ORDERED: NS IV 1000 ML 1,000 ML IV STA (20:12)
[2022-07-16] MEDS ORDERED: NS 100 ML (IVPB) BAG IV ONE (20:15)
[2022-07-16] MEDS ORDERED: IOHEXOL 350 MG/ML 100 ML (OMNIPAQUE 350) VIAL IV ONE (20:15)
[2022-07-16] MEDS ORDERED: HOLD METFORMIN - RECEIVED CONTRAST 20 ML VIAL IV SCH (20:15)
[2022-07-16 21:05] LABS: BILIRUBIN,URINE NEGATIVE (NEGATIVE); CLARITY,URINE CLEAR; COLOR,URINE YELLOW; GLUCOSE, URINE (UA) NEGATIVE (NEGATIVE); KETONES,URINE NEGATIVE (NEGATIVE); LEUKOCYTE ESTERASE ,URINE NEGATIVE (NEGATIVE); NITRITE,URINE NEGATIVE (NEGATIVE); PH,URINE 6.5 (5-9); PROTEIN,URINE NEGATIVE (NEGATIVE)
[2022-07-16 21:14] LABS: BACTERIA,URINE TRACE /HPF; SQUAMOUS EPITHELIAL CELL,UR RARE /HPF; WBC,URINE RARE /HPF
[2022-07-16 22:13] VITALS: BP 160/95
== END 2022-07-16 22:17 | disposition home or self-care (01) ==
LOC: EDUNIT# 18:37 → ER 18:40
DX: M62.81 Muscle weakness (generalized) (principal); E86.0 Dehydration; Z86.73 Personal history of transient ischemic attack (TIA), and cerebral infarction without residual deficits
CPT/HCPCS: 36415; 70450; 71045; 80053; 81000; 82947; 84484; 85025; 85379; 85610; 85730; 93005; 93041

== ENCOUNTER → 2022-08-28 | Outpatient (CLI) | payer MEDICAID ==
--- NOTE | 2022-08-28 13:16 | Diagnostic Imaging Report ---
PROCEDURE: US carotid duplex, bilateral. TECHNIQUE: Multiple real-time grayscale images were obtained over the carotid arteries in various projections, bilaterally. Additional spectral analysis and color Doppler duplex images were also obtained. INDICATION: TIA, cardiac arrhythmia. COMPARISON: None available. FINDINGS: Minimal scattered plaque is noted within the bilateral carotid arterial systems. Peak systolic velocities throughout the bilateral carotid arterial systems are within normal limits. Additionally, the bilateral internal carotid artery to common carotid artery ratios are within normal limits. Antegrade flow within the bilateral vertebral arteries. Some images suggest a potential cardiac arrhythmia. IMPRESSION: No evidence of hemodynamically significant stenosis. Antegrade flow within bilateral vertebral arteries. Some images suggest potential cardiac arrhythmia. Recommend clinical correlation and correlation with EKG. Parameters based on the consensus panel Huerta-Scale and Doppler ultrasound criteria published March 2003, Radiology, Volume 229. DOPPLER (peak systolic velocity M/S Right Left CCA .85 1.1 ICA Proximal .69 .68 ICA Mid .55 .86 ICA Distal .64 1.0 RATIO .82 .92 ECA 1.2 .93 VERT .45 .34 Dictated by: Dictated on workstation # [id number]
== END ==
LOC: RAD 09:48
PROVIDERS: ATTEND Physician Assistant
DX: G45.9 Transient cerebral ischemic attack, unspecified (principal); I49.9 Cardiac arrhythmia, unspecified
CPT/HCPCS: 93880